=== PATIENT | female | born 1980 | race Caucasian/White ===

== ENCOUNTER 2016-08-04 14:50 | Emergency (ER) | payer SELFPAY ==
[2016-08-04] MEDS ORDERED: SODIUM CHLORIDE 0.9% 1,000 ML IV ONE (15:55)
--- NOTE | 2016-08-04 16:16 | ED ---
Nausea/Vomiting/Diarrhea HPI - General Chief complaint: Nausea/Vomiting/Diarrhea Stated complaint: NVD Time Seen by Provider: 08/04/16 15:54 Source: patient, RN notes reviewed Mode of arrival: ambulatory Limitations: no limitations - History of Present Illness Initial comments: Patient is a 36-year-old female presents emergency room for evaluation nausea, vomiting, diarrhea. Patient states she started vomiting on Thursday. Patient states vomiting all weekend. Patient states she can't keep anything down. Patient states she's also developed diarrhea. Patient denies recent travel outside the country or trying new foods. Patient also states that having cough and congestion for the past few days. Patient states every time she coughs she has right posterior rib pain. Patient denies any recent trauma to her back or ribs. Patient states that she does smoke a half pack per day. Patient states she had a fever last night. Patient denies taking anything for her symptoms. Patient states she feels weak and has had itching all over body pain. Patient denies receiving her influenza vaccine this year. Patient also states she's been having left upper quadrant pain that began today. Patient states the pain feels sharp. Patient states she has history cholecystectomy. Patient denies any blood in stools. Patient has a pain or burning during urination, trouble urinating or blood in urine. - Related Data Home Medications Medication Instructions Recorded Confirmed Albuterol Inhaler [Ventolin Hfa 1 - 2 puff INHALATION RT-Q6H PRN 08/04/16 Inhaler] Previous Rx's Medication Instructions Recorded Nitrofurantoin Monohyd/M-Cryst 100 mg PO Q12HR 5 Days 08/04/16 [Macrobid] Ondansetron Odt [Zofran Odt] 4 mg PO Q8HR PRN #12 tab 08/04/16 Allergies Allergy/AdvReac Type Severity Reaction Status Date / Time ibuprofen [From Motrin] Allergy Itching Verified 08/04/16 16:03 Review of Systems ROS Statement: Those systems with pertinent positive or pertinent negative responses have been documented in the HPI. ROS Other: All systems not noted in ROS Statement are negative. Past Medical History Past Medical History: Osteoarthritis (OA) Additional Past Medical History / Comment(s): CURRENT TORN RT ACL History of Any Multi-Drug Resistant Organisms: None Reported Past Surgical History: Section, Cholecystectomy, Tubal Ligation Past Anesthesia/Blood Transfusion Reactions: No Reported Reaction Past Psychological History: Depression Smoking Status: Current every day smoker Past Alcohol Use History: None Reported Additional Past Alcohol Use History / Comment(s): PT STATES QUIT SMOKING 2 WEEK AGO 01/18/15 Past Drug Use History: None Reported - Past Family History Mother Family Medical History: No Reported History General Exam - General Exam Comments Initial Comments: Sitting in exam room in no acute distress. Limitations: no limitations General appearance: alert, in no apparent distress Head exam: Present: atraumatic, normocephalic, normal inspection Eye exam: Present: normal appearance ENT exam: Present: normal exam Neck exam: Present: normal inspection Respiratory exam: Present: normal lung sounds bilaterally. Absent: respiratory distress Cardiovascular Exam: Present: regular rate, normal rhythm, normal heart sounds GI/Abdominal exam: Present: soft, tenderness (Left upper quadrant), normal bowel sounds. Absent: distended, guarding, rebound, rigid Extremities exam: Present: normal inspection Back exam: Present: normal inspection Neurological exam: Present: alert, oriented X3, CN II-XII intact, normal gait Psychiatric exam: Present: normal affect, normal mood Skin exam: Present: warm, dry, intact, normal color. Absent: rash Course Vital Signs 08/04/16 08/04/16 08/04/16 15:02 16:31 18:07 Temperature 99.0 F 97.8 F 98.1 F Pulse Rate 70 60 54 L Respiratory 16 18 18 Rate Blood Pressure 135/71 109/55 111/63 O2 Sat by Pulse 100 99 100 Oximetry Medical Decision Making - Medical Decision Making Patient is a 36-year-old female presents to emergency room for evaluation of nausea, vomiting and diarrhea. Labs show no significant findings. Influenza negative. Patient states she is feeling much better after fluids and Zofran given. Patient states she would like to be discharged home. Urinalysis suspicious for possible urinary tract infection. Will culture urine and prophylactically treat patient for urinary tract infection. Patient states she understands and that was discussed with her. Return parameters discussed. Case discussed with Dr. Calvillo. - Lab Data Result diagrams: 08/04/16 16:28 08/04/16 16:28 Lab Results 08/04/16 08/04/16 08/04/16 Range/Units 16:28 16:28 16:28 WBC 9.3 (3.8-10.6) k/uL RBC 4.71 (3.80-5.40) m/uL Hgb 14.0 (11.4-16.0) gm/dL Hct 41.1 (34.0-46.0) % MCV 87.3 (80.0-100.0) fL MCH 29.7 (25.0-35.0) pg MCHC 34.0 (31.0-37.0) g/dL RDW 13.6 (11.5-15.5) % Plt Count 238 (150-450) k/uL Neutrophils % 47 % Lymphocytes % 40 % Monocytes % 4 % Eosinophils % 5 % Basophils % 2 % Neutrophils # 4.4 (1.3-7.7) k/uL Lymphocytes # 3.7 (1.0-4.8) k/uL Monocytes # 0.4 (0-1.0) k/uL Eosinophils # 0.5 (0-0.7) k/uL Basophils # 0.1 (0-0.2) k/uL Sodium 139 (137-145) mmol/L Potassium 4.1 (3.5-5.1) mmol/L Chloride 106 (98-107) mmol/L Carbon Dioxide 25 (22-30) mmol/L Anion Gap 8 mmol/L BUN 9 (7-17) mg/dL Creatinine 0.83 (0.52-1.04) mg/dL Est GFR (MDRD) Af Amer >60 (>60 ml/min/1.73 sqM) Est GFR (MDRD) Non-Af >60 (>60 ml/min/1.73 sqM) Glucose 87 (74-99) mg/dL Calcium 9.1 (8.4-10.2) mg/dL Magnesium 1.7 (1.6-2.3) mg/dL Total Bilirubin 0.5 (0.2-1.3) mg/dL AST 23 (14-36) U/L ALT 29 (9-52) U/L Alkaline Phosphatase 76 (38-126) U/L Total Protein 6.4 (6.3-8.2) g/dL Albumin 3.5 (3.5-5.0) g/dL Amylase 31 (30-110) U/L Lipase 55 (23-300) U/L Urine Color Urine Appearance (Clear) Urine pH (5.0-8.0) Ur Specific Offerman (1.001-1.035) Urine Protein (Negative) Urine Glucose (UA) (Negative) Urine Ketones (Negative) Urine Blood (Negative) Urine Nitrite (Negative) Urine Bilirubin (Negative) Urine Urobilinogen (<2.0) mg/dL Ur Leukocyte Esterase (Negative) Urine RBC (0-5) /hpf Urine WBC (0-5) /hpf Ur Squamous Epith Cells (0-4) /hpf Urine Bacteria (None) /hpf Urine Mucus (None) /hpf Influenza Type A RNA Not Detected (Not Detectd) Influenza Type B (PCR) Not Detected (Not Detectd) 08/04/16 Range/Units 17:35 WBC (3.8-10.6) k/uL RBC (3.80-5.40) m/uL Hgb (11.4-16.0) gm/dL Hct (34.0-46.0) % MCV (80.0-100.0) fL MCH (25.0-35.0) pg MCHC (31.0-37.0) g/dL RDW (11.5-15.5) % Plt Count (150-450) k/uL Neutrophils % % Lymphocytes % % Monocytes % % Eosinophils % % Basophils % % Neutrophils # (1.3-7.7) k/uL Lymphocytes # (1.0-4.8) k/uL Monocytes # (0-1.0) k/uL Eosinophils # (0-0.7) k/uL Basophils # (0-0.2) k/uL Sodium (137-145) mmol/L Potassium (3.5-5.1) mmol/L Chloride (98-107) mmol/L Carbon Dioxide (22-30) mmol/L Anion Gap mmol/L BUN (7-17) mg/dL Creatinine (0.52-1.04) mg/dL Est GFR (MDRD) Af Amer (>60 ml/min/1.73 sqM) Est GFR (MDRD) Non-Af (>60 ml/min/1.73 sqM) Glucose (74-99) mg/dL Calcium (8.4-10.2) mg/dL Magnesium (1.6-2.3) mg/dL Total Bilirubin (0.2-1.3) mg/dL AST (14-36) U/L ALT (9-52) U/L Alkaline Phosphatase (38-126) U/L Total Protein (6.3-8.2) g/dL Albumin (3.5-5.0) g/dL Amylase (30-110) U/L Lipase (23-300) U/L Urine Color Yellow Urine Appearance Cloudy H (Clear) Urine pH 5.5 (5.0-8.0) Ur Specific Offerman 1.021 (1.001-1.035) Urine Protein Trace H (Negative) Urine Glucose (UA) Negative (Negative) Urine Ketones Negative (Negative) Urine Blood Negative (Negative) Urine Nitrite Negative (Negative) Urine Bilirubin Negative (Negative) Urine Urobilinogen 2.0 (<2.0) mg/dL Ur Leukocyte Esterase Large H (Negative) Urine RBC 17 H (0-5) /hpf Urine WBC 8 H (0-5) /hpf Ur Squamous Epith Cells 10 H (0-4) /hpf Urine Bacteria Rare H (None) /hpf Urine Mucus Moderate H (None) /hpf Influenza Type A RNA (Not Detectd) Influenza Type B (PCR) (Not Detectd) - Radiology Data Radiology results: report reviewed, image reviewed Disposition Clinical Impression: Nausea vomiting and diarrhea, Urinary tract infection Disposition: HOME SELF-CARE Condition: Good Instructions: Acute Nausea and Vomiting (ED), Urinary Tract Infection in Women (ED) Additional Instructions: Take Zofran as needed for nausea. Take antibiotics as directed. Drink plenty of fluids. Please follow up with primary care provider in 24-48 hours for reevaluation. If any new symptom arises or symptoms worsen, return to ER as soon as possible. Prescriptions: Ondansetron Odt [Zofran Odt] 4 mg PO Q8HR PRN #12 tab PRN Reason: Nausea Nitrofurantoin Monohyd/M-Cryst [Macrobid] 100 mg PO Q12HR 5 Days Referrals: Son Verdugo MD [Primary Care Provider] - 1-2 days Time of Disposition: 18:23
[2016-08-04 16:35] VITALS: RESP 18
[2016-08-04 16:39] LABS: Basophils # (A) 0.1 k/uL (0-0.2); Basophils % (A) 2 %; CH 29.2; CHCM 33.6; Eosinophils # (A) 0.5 k/uL (0-0.7); Eosinophils % (A) 5 %; HCT 41.1 % (34.0-46.0); HDW 2.55; Luc # (Auto) 0.19; Luc % (Auto) 2; Lymphocytes # (A) 3.7 k/uL (1.0-4.8); Lymphocytes % (A) 40 %; MCH 29.7 pg (25.0-35.0); MCV 87.3 fL (80.0-100.0); Monocytes # (A) 0.4 k/uL (0-1.0); Monocytes % (A) 4 %; Neutrophils # (A) 4.4 k/uL (1.3-7.7); Neutrophils % (A) 47 %; RBC 4.71 m/uL (3.80-5.40); RDW 13.6 % (11.5-15.5); WBC 9.3 k/uL (3.8-10.6); WBC (Perox) 10.02
[2016-08-04 16:48] LABS: ALT 29 U/L (9-52); AST 23 U/L (14-36); Alkaline Phosphatase 76 U/L (38-126); Amylase 31 U/L (30-110); Anion Gap 8 mmol/L; Blood Urea Nitrogen 9 mg/dL (7-17); Calcium 9.1 mg/dL (8.4-10.2); Carbon Dioxide 25 mmol/L (22-30); Chloride 106 mmol/L (98-107); Glucose 87 mg/dL (74-99); Magnesium 1.7 mg/dL (1.6-2.3); Non-African American GFR(MDRD) >60 (>60 ml/min/1.73 sqM); Potassium 4.1 mmol/L (3.5-5.1); Sodium 139 mmol/L (137-145); Total Bilirubin 0.5 mg/dL (0.2-1.3); Total Protein 6.4 g/dL (6.3-8.2)
--- NOTE | 2016-08-04 17:07 | XR ---
EXAMINATION TYPE: XR abdomen acute w cxr DATE OF EXAM: 08/04/2016 5:01 PM COMPARISON: 01/06/2014 HISTORY: Cough. Abdominal pain. TECHNIQUE: Supine, upright, and left side down lateral decubitus views of the abdomen are obtained. FINDINGS: There is no sign of intestinal obstruction or pneumoperitoneum. Fecal pattern is normal. There are cl ips from tubal ligation. There are no pathologic calcifications over the kidneys. Heart and mediastin um are normal. Lungs are clear of infiltrate. There is no sign of pleural effusion. IMPRESSION: Nonacute abdomen. Normal chest. No adverse change compared to old exam.
[2016-08-04 17:53] LABS: Appearance,Urine Cloudy (Clear); Bacteria,Urine Rare /hpf; Bilirubin,Urine Negative (Negative); Glucose,Urine (UA) Negative (Negative); Ketones,Urine Negative (Negative); Leukocyte Esterase,Urine Large (Negative); Mucus,Urine Moderate /hpf; Nitrite,Urine Negative (Negative); PH, Urine 5.5 (5.0-8.0); Particle Count 15981; Protein,Urine Trace (Negative); RBC,Urine 17 /hpf (0-5); Specific Gravity,Urine 1.021 (1.001-1.035); Squamous Epithelial Cell,Urine 10 /hpf (0-4); UA Billing (MACRO vs. MICRO) MICRO; WBC,Urine 8 /hpf (0-5)
[2016-08-04] MEDS ORDERED: ACETAMINOPHEN TAB 325 MG TAB PO STA (18:03)
[2016-08-04 18:08] VITALS: BP 111/63; PULSE 54; TEMP 98.1
== END 2016-08-04 18:47 | disposition home or self-care (01) ==
LOC: EC 14:50
DX: N39.0 Urinary tract infection, site not specified (principal); R11.2 Nausea with vomiting, unspecified; R10.12 Left upper quadrant pain; R07.81 Pleurodynia; R05 Cough; R09.89 Other specified symptoms and signs involving the circulatory and respiratory systems; Z87.891 Personal history of nicotine dependence; Z88.6 Allergy status to analgesic agent; Z90.49 Acquired absence of other specified parts of digestive tract
CPT/HCPCS: 36415; 74022; 80053; 81001; 82150; 83690; 83735; 85025; 87502; 96360; 99284

== ENCOUNTER 2016-10-29 14:16 | Emergency (ER) | payer BC ==
[2016-10-29] MEDS ORDERED: HYDROcodone/APAP 5-325MG 1 EACH TAB PO STA (16:26)
--- NOTE | 2016-10-29 16:50 | ED ---
General Adult HPI - General Chief complaint: Chest Pain Stated complaint: Rib Pain Time Seen by Provider: 10/29/16 16:05 Source: patient Mode of arrival: ambulatory Limitations: no limitations - History of Present Illness Initial comments: 36-year-old female presenting for right rib and chest pain. Patient states it began yesterday and has persisted today. States pain is in the right lower ribs and radiates to the right back. She denies any abdominal pain associated. She denies any nausea or vomiting associated. She states hurts to take a deep breath in. Denies any significant cardiac history. She denies any prior DVT or PE. She denies any lower extremity swelling. - Related Data Home Medications Medication Instructions Recorded Confirmed Acetaminophen [Tylenol] 650 mg PO BID PRN 10/29/16 10/29/16 Previous Rx's Medication Instructions Recorded Diazepam [Valium] 5 mg PO BID PRN #8 tab 10/29/16 HYDROcodone/APAP 5-325MG [[place] 1 tab PO Q6HR PRN #12 tab 10/29/16 5-325] Allergies Allergy/AdvReac Type Severity Reaction Status Date / Time ibuprofen [From Motrin] Allergy Itching Verified 10/29/16 16:43 Review of Systems ROS Statement: Those systems with pertinent positive or pertinent negative responses have been documented in the HPI. ROS Other: All systems not noted in ROS Statement are negative. Past Medical History Past Medical History: Osteoarthritis (OA) Additional Past Medical History / Comment(s): CURRENT TORN RT ACL History of Any Multi-Drug Resistant Organisms: None Reported Past Surgical History: Section, Cholecystectomy, Orthopedic Surgery, Tubal Ligation Additional Past Surgical History / Comment(s): right knee Past Anesthesia/Blood Transfusion Reactions: No Reported Reaction Past Psychological History: Depression Smoking Status: Current every day smoker Past Alcohol Use History: None Reported Additional Past Alcohol Use History / Comment(s): PT STATES QUIT SMOKING 2 WEEK AGO 01/18/15 Past Drug Use History: None Reported - Past Family History Mother Family Medical History: No Reported History General Exam - General Exam Comments Initial Comments: General: Awake and Alert. No acute distress. Does not appear acutely ill. Obese. Eyes: SOCRATES, EOM intact. No nystagmus. No scleral icterus. HENT: Atraumatic, normocephalic. Mucous membranes moist. Trachea midline. Neck: The neck is supple, there is no tenderness or JVD. Cardiovascular: Regular rate and rhythm. No murmur, rub, or gallop is appreciated. Distal pulses intact. Respiratory: Lungs are clear to auscultation bilaterally. No wheezes, rales, rhonchi. No respiratory distress. Gastrointestinal: Soft, Nontender. No rebound or guarding. Non-distended. No masses or organomegaly noted. No CVA tenderness. Musculoskeletal: Right lateral lower rib tenderness. No crepitance. No gross deformity. No strength deficits. Neurological: A&Ox3. CN II-XII grossly intact, There are no obvious motor or sensory deficits. Coordination appears grossly intact. Speech is normal. Skin: Skin is warm and dry and no rashes or lesions are noted. Psychiatric: Cooperative, appropriate mood & affect, normal judgment. Limitations: no limitations Course Vital Signs 10/29/16 10/29/16 14:40 18:24 Temperature 97.8 F 97.3 F L Pulse Rate 85 55 L Respiratory 18 16 Rate Blood Pressure 119/77 108/55 O2 Sat by Pulse 96 98 Oximetry EKG Findings - EKG Comments: EKG Findings:: EKG 17:36. Sinus rhythm. Rate 51. Normal axis. No STEMI. Normal EKG. Medical Decision Making - Medical Decision Making 36-year-old female presenting for right rib pain. Patient is reproducible tenderness on exam. EKG was performed without evidence of acute ischemia. X- ray imaging performed without evidence of acute process. Lower suspicion of acute PE at this time. Patient without hypoxia, no tachycardia, no significant risk factors for PE. Patient was given pain medication with improvement of her pain. Patient was updated on results and imaging. Rx for pain medication and muscle relaxer provided. Discussed close follow-up with PCP. Discussed concerning signs symptoms, including concerning symptoms relating to possible PE for immediate return and further workup. Patient is agreeable with plan and discharge home. - Lab Data Result diagrams: 10/29/16 16:55 10/29/16 16:55 Lab Results 10/29/16 10/29/16 Range/Units 16:55 16:55 WBC 11.5 H (3.8-10.6) k/uL RBC 5.27 (3.80-5.40) m/uL Hgb 15.2 (11.4-16.0) gm/dL Hct 47.0 H (34.0-46.0) % MCV 89.2 (80.0-100.0) fL MCH 28.8 (25.0-35.0) pg MCHC 32.3 (31.0-37.0) g/dL RDW 13.5 (11.5-15.5) % Plt Count 266 (150-450) k/uL Neutrophils % 51 % Lymphocytes % 40 % Monocytes % 4 % Eosinophils % 4 % Basophils % 1 % Neutrophils # 5.8 (1.3-7.7) k/uL Lymphocytes # 4.6 (1.0-4.8) k/uL Monocytes # 0.4 (0-1.0) k/uL Eosinophils # 0.4 (0-0.7) k/uL Basophils # 0.1 (0-0.2) k/uL Sodium 139 (137-145) mmol/L Potassium 3.7 (3.5-5.1) mmol/L Chloride 105 (98-107) mmol/L Carbon Dioxide 27 (22-30) mmol/L Anion Gap 7 mmol/L BUN 10 (7-17) mg/dL Creatinine 0.74 (0.52-1.04) mg/dL Est GFR (MDRD) Af Amer >60 (>60 ml/min/1.73 sqM) Est GFR (MDRD) Non-Af >60 (>60 ml/min/1.73 sqM) Glucose 91 (74-99) mg/dL Calcium 9.0 (8.4-10.2) mg/dL Magnesium 1.8 (1.6-2.3) mg/dL - EKG Data -: EKG Interpreted by Nm EKG shows normal: sinus rhythm Rate: normal - Radiology Data Radiology results: report reviewed, image reviewed Disposition Clinical Impression: Rib pain on right side Disposition: HOME SELF-CARE Condition: Stable Instructions: Chest Pain (ED), Costochondritis (ED) Prescriptions: Diazepam [Valium] 5 mg PO BID PRN #8 tab PRN Reason: back spasm HYDROcodone/APAP 5-325MG [Ow[place] 5-325] 1 tab PO Q6HR PRN #12 tab PRN Reason: Pain Referrals: Son Verdugo MD [Primary Care Provider] - 1-2 days Time of Disposition: 17:53
[2016-10-29 17:05] LABS: Basophils # (A) 0.1 k/uL (0-0.2); Basophils % (A) 1 %; CH 29.3; Eosinophils # (A) 0.4 k/uL (0-0.7); Eosinophils % (A) 4 %; HDW 2.42; HGB 15.2 gm/dL (11.4-16.0); Luc # (Auto) 0.15; Luc % (Auto) 1; Lymphocytes # (A) 4.6 k/uL (1.0-4.8); Lymphocytes % (A) 40 %; MCH 28.8 pg (25.0-35.0); MCHC 32.3 g/dL (31.0-37.0); MCV 89.2 fL (80.0-100.0); Mean Platelet Volume 7.9; Monocytes # (A) 0.4 k/uL (0-1.0); Monocytes % (A) 4 %; Neutrophils # (A) 5.8 k/uL (1.3-7.7); Neutrophils % (A) 51 %; RBC 5.27 m/uL (3.80-5.40); RDW 13.5 % (11.5-15.5); WBC 11.5 k/uL (3.8-10.6); WBC (Perox) 11.14
[2016-10-29 17:15] LABS: Anion Gap 7 mmol/L; Blood Urea Nitrogen 10 mg/dL (7-17); Carbon Dioxide 27 mmol/L (22-30); Chloride 105 mmol/L (98-107); Glucose 91 mg/dL (74-99); Magnesium 1.8 mg/dL (1.6-2.3); Non-African American GFR(MDRD) >60 (>60 ml/min/1.73 sqM); Potassium 3.7 mmol/L (3.5-5.1); Sodium 139 mmol/L (137-145)
--- NOTE | 2016-10-29 17:21 | XR ---
EXAMINATION TYPE: XR chest 2V DATE OF EXAM: 10/29/2016 COMPARISON: 04/27/2016 HISTORY: Cough TECHNIQUE: Frontal and lateral views of the chest are obtained. FINDINGS: Heart and mediastinum are normal. Lungs are clear. Diaphragm is normal. Bony thorax appear s normal. IMPRESSION: Normal chest. No change.
[2016-10-29 18:25] VITALS: BP 108/55; PULSE 55; RESP 16; TEMP 97.3
== END 2016-10-29 18:24 | disposition home or self-care (01) ==
LOC: EC 14:16
DX: R07.81 Pleurodynia (principal); Z87.891 Personal history of nicotine dependence; Z88.6 Allergy status to analgesic agent
CPT/HCPCS: 36415; 71020; 80048; 83735; 85025; 93005; 99285

== ENCOUNTER 2016-12-05 08:59 | Emergency (ER) | payer BC ==
--- NOTE | 2016-12-05 09:16 | ED ---
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 Patient reports that she has had a lump on her vaginal area as well as frequent urination. He reports that whenever she had a bowel more treatment and has been painful. She also reports that she's had some abnormal vaginal discharge for the past 3 days. Patient states that she has had no fever or chills. She also reports that occasionally she'll get a sharp pain over her right upper quadrant. She states that she's had a history of a cholecystectomy and tubal ligation. She denies any other abdominal pain, chest pain or shortness of breath. Patient denies any recent fever, chills, shortness of breath, chest pain, back pain, abdominal pain, nausea vomiting, numbness or tingling, dysuria or hematuria, constipation or diarrhea, headaches or visual changes, or any other current symptoms - Related Data Home Medications Medication Instructions Recorded Confirmed Acetaminophen [Tylenol] 650 mg PO BID PRN 10/29/16 12/05/16 Previous Rx's Medication Instructions Recorded Doxycycline [Vibramycin] 100 mg PO Q12HR 14 Days 12/05/16 Allergies Allergy/AdvReac Type Severity Reaction Status Date / Time ibuprofen [From Motrin] Allergy Itching Verified 12/05/16 09:39 Review of Systems ROS Statement: Those systems with pertinent positive or pertinent negative responses have been documented in the HPI. ROS Other: All systems not noted in ROS Statement are negative. Past Medical History Past Medical History: Osteoarthritis (OA) Additional Past Medical History / Comment(s): CURRENT TORN RT ACL History of Any Multi-Drug Resistant Organisms: None Reported Past Surgical History: Section, Cholecystectomy, Orthopedic Surgery, Tubal Ligation Additional Past Surgical History / Comment(s): right knee Past Anesthesia/Blood Transfusion Reactions: No Reported Reaction Past Psychological History: Depression Smoking Status: Current every day smoker Past Alcohol Use History: None Reported Past Drug Use History: None Reported - Past Family History Mother Family Medical History: No Reported History General Exam - General Exam Comments Initial Comments: 36-year-old female. No acute distress. Limitations: no limitations General appearance: alert, in no apparent distress Head exam: Present: atraumatic, normocephalic, normal inspection Eye exam: Present: normal appearance, PERRL, EOMI. Absent: scleral icterus, conjunctival injection, periorbital swelling ENT exam: Present: normal exam, mucous membranes moist Neck exam: Present: normal inspection. Absent: tenderness, meningismus, lymphadenopathy Respiratory exam: Present: normal lung sounds bilaterally. Absent: respiratory distress, wheezes, rales, rhonchi, stridor Cardiovascular Exam: Present: regular rate, normal rhythm, normal heart sounds. Absent: systolic murmur, diastolic murmur, rubs, gallop, clicks GI/Abdominal exam: Present: soft, normal bowel sounds. Absent: distended, tenderness, guarding, rebound, rigid Rectal exam: Present: normal inspection, normal rectal tone (Patient has pain with rectal exam. There does seem to be concerned for possible perirectal abscess. There is seemed to be an area of fluctuance between the areas of the rectum and vagina.) External exam: Present: normal external exam. Absent: erythema, swelling, lesions, lacerations, ecchymosis Speculum exam: Present: vaginal discharge (Patient is purulent white/yellow vaginal discharge. Patient denies any concern for sexual transmitted infection. There is an area of tenderness and fluctuance over the inner vaginal wall and canal.). Absent: normal speculum exam Extremities exam: Present: normal inspection, full ROM, normal capillary refill. Absent: tenderness, pedal edema, joint swelling, calf tenderness Back exam: Present: normal inspection Neurological exam: Present: alert, oriented X3, CN II-XII intact Psychiatric exam: Present: normal affect, normal mood Skin exam: Present: warm, dry, intact, normal color. 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 Patient reports that she has had a lump on her vaginal area as well as frequent urination. He reports that whenever she had a bowel more treatment and has been painful. She also reports that she's had some abnormal vaginal discharge for the past 3 days. Patient states that she has had no fever or chills. She also reports that occasionally she'll get a sharp pain over her right upper quadrant. She states that she's had a history of a cholecystectomy and tubal ligation. She denies any other abdominal pain, chest pain or shortness of breath. Patient's labwork was reviewed. Evidence of significant urinary tract infection. Also Trichomonas test was positive. On vaginal exam she did have an area of wincing D fluctuance and tenderness on vaginal exam. She also had some discomfort with digital rectal exam. At that time there is concern for possibility of perirectal or vaginal wall abscess. Patient received a CAT scan of the pelvis with contrast. Negative for any sign of any abscess or abnormalities. Patient was treated with Flagyl, Rocephin and azithromycin for concern for PID. Patient will be discharged with antibiotics. Patient agrees to treatment plan and will comply. Return parameters were discussed. - Lab Data Result diagrams: 12/05/16 10:00 12/05/16 10:00 Lab Results 12/05/16 12/05/16 12/05/16 Range/Units 10:00 10:00 10:00 WBC 12.1 H (3.8-10.6) k/uL RBC 4.81 (3.80-5.40) m/uL Hgb 14.0 (11.4-16.0) gm/dL Hct 41.9 (34.0-46.0) % MCV 87.2 (80.0-100.0) fL MCH 29.1 (25.0-35.0) pg MCHC 33.4 (31.0-37.0) g/dL RDW 14.5 (11.5-15.5) % Plt Count 258 (150-450) k/uL Neutrophils % 53 % Lymphocytes % 37 % Monocytes % 4 % Eosinophils % 4 % Basophils % 1 % Neutrophils # 6.4 (1.3-7.7) k/uL Lymphocytes # 4.5 (1.0-4.8) k/uL Monocytes # 0.5 (0-1.0) k/uL Eosinophils # 0.4 (0-0.7) k/uL Basophils # 0.1 (0-0.2) k/uL PT (9.0-12.0) sec INR (<1.2) APTT (22.0-30.0) sec Sodium (137-145) mmol/L Potassium (3.5-5.1) mmol/L Chloride (98-107) mmol/L Carbon Dioxide (22-30) mmol/L Anion Gap mmol/L BUN (7-17) mg/dL Creatinine (0.52-1.04) mg/dL Est GFR (MDRD) Af Amer (>60 ml/min/1.73 sqM) Est GFR (MDRD) Non-Af (>60 ml/min/1.73 sqM) Glucose (74-99) mg/dL Calcium (8.4-10.2) mg/dL Total Bilirubin (0.2-1.3) mg/dL AST (14-36) U/L ALT (9-52) U/L Alkaline Phosphatase (38-126) U/L Total Protein (6.3-8.2) g/dL Albumin (3.5-5.0) g/dL Urine Color Yellow Urine Appearance Cloudy H (Clear) Urine pH 6.0 (5.0-8.0) Ur Specific [place] 1.015 (1.001-1.035) Urine Protein 1+ H (Negative) Urine Glucose (UA) Negative (Negative) Urine Ketones Negative (Negative) Urine Blood Trace H (Negative) Urine Nitrite Negative (Negative) Urine Bilirubin Negative (Negative) Urine Urobilinogen 2.0 (<2.0) mg/dL Ur Leukocyte Esterase Large H (Negative) Urine RBC 36 H (0-5) /hpf Urine WBC 153 H (0-5) /hpf Urine WBC Clumps Rare H (None) /hpf Ur Squamous Epith Cells 8 H (0-4) /hpf Urine Bacteria Rare H (None) /hpf Urine Mucus Occasional H (None) /hpf Trichomonas Ag (Rapid) Positive H (Negative) 12/05/16 12/05/16 Range/Units 10:00 10:00 WBC (3.8-10.6) k/uL RBC (3.80-5.40) m/uL Hgb (11.4-16.0) gm/dL Hct (34.0-46.0) % MCV (80.0-100.0) fL MCH (25.0-35.0) pg MCHC (31.0-37.0) g/dL RDW (11.5-15.5) % Plt Count (150-450) k/uL Neutrophils % % Lymphocytes % % Monocytes % % Eosinophils % % Basophils % % Neutrophils # (1.3-7.7) k/uL Lymphocytes # (1.0-4.8) k/uL Monocytes # (0-1.0) k/uL Eosinophils # (0-0.7) k/uL Basophils # (0-0.2) k/uL PT 10.1 (9.0-12.0) sec INR 1.0 (<1.2) APTT 24.8 (22.0-30.0) sec Sodium 138 (137-145) mmol/L Potassium 3.9 (3.5-5.1) mmol/L Chloride 105 (98-107) mmol/L Carbon Dioxide 25 (22-30) mmol/L Anion Gap 8 mmol/L BUN 9 (7-17) mg/dL Creatinine 0.87 (0.52-1.04) mg/dL Est GFR (MDRD) Af Amer >60 (>60 ml/min/1.73 sqM) Est GFR (MDRD) Non-Af >60 (>60 ml/min/1.73 sqM) Glucose 82 (74-99) mg/dL Calcium 9.0 (8.4-10.2) mg/dL Total Bilirubin 0.3 (0.2-1.3) mg/dL AST 15 (14-36) U/L ALT 25 (9-52) U/L Alkaline Phosphatase 80 (38-126) U/L Total Protein 6.0 L (6.3-8.2) g/dL Albumin 3.6 (3.5-5.0) g/dL Urine Color Urine Appearance (Clear) Urine pH (5.0-8.0) Ur Specific [place] (1.001-1.035) Urine Protein (Negative) Urine Glucose (UA) (Negative) Urine Ketones (Negative) Urine Blood (Negative) Urine Nitrite (Negative) Urine Bilirubin (Negative) Urine Urobilinogen (<2.0) mg/dL Ur Leukocyte Esterase (Negative) Urine RBC (0-5) /hpf Urine WBC (0-5) /hpf Urine WBC Clumps (None) /hpf Ur Squamous Epith Cells (0-4) /hpf Urine Bacteria (None) /hpf Urine Mucus (None) /hpf Trichomonas Ag (Rapid) (Negative) - Radiology Data Radiology results: report reviewed CT abdomen and pelvis is negative for any acute process. Disposition Clinical Impression: PID (acute pelvic inflammatory disease), UTI (urinary tract infection) Disposition: HOME SELF-CARE Condition: Good Instructions: Urinary Tract Infection in Women (ED), Pelvic Inflammatory Disease (ED) Additional Instructions: Patient advised to have pelvic rest and no intercourse for the next 2 weeks. Take medication as prescribed. Return to the emergency department if any alarming signs or symptoms occur. Prescriptions: Doxycycline [Vibramycin] 100 mg PO Q12HR 14 Days Referrals: Son Verdugo MD [Primary Care Provider] - 1-2 days Time of Disposition: 12:06
[2016-12-05] MEDS ORDERED: RX INFO: IV CONTRAST WAS GIVEN 1 EACH MISC MISCELLANE PRN (09:48)
[2016-12-05] MEDS ORDERED: SODIUM CHLORIDE 0.9% 1,000 ML IV ONE (10:19)
[2016-12-05 10:21] LABS: Basophils # (A) 0.1 k/uL (0-0.2); Basophils % (A) 1 %; CH 29.4; CHCM 33.9; Eosinophils # (A) 0.4 k/uL (0-0.7); Eosinophils % (A) 4 %; HCT 41.9 % (34.0-46.0); HDW 2.42; Luc # (Auto) 0.19; Luc % (Auto) 2; Lymphocytes # (A) 4.5 k/uL (1.0-4.8); Lymphocytes % (A) 37 %; MCH 29.1 pg (25.0-35.0); MCHC 33.4 g/dL (31.0-37.0); MCV 87.2 fL (80.0-100.0); Mean Platelet Volume 8.5; Monocytes # (A) 0.5 k/uL (0-1.0); Monocytes % (A) 4 %; Neutrophils # (A) 6.4 k/uL (1.3-7.7); Neutrophils % (A) 53 %; RBC 4.81 m/uL (3.80-5.40); RDW 14.5 % (11.5-15.5); WBC 12.1 k/uL (3.8-10.6); WBC (Perox) 11.85
[2016-12-05 10:27] LABS: Appearance,Urine Cloudy (Clear); Bacteria,Urine Rare /hpf; Bilirubin,Urine Negative (Negative); Glucose,Urine (UA) Negative (Negative); Ketones,Urine Negative (Negative); Leukocyte Esterase,Urine Large (Negative); Mucus,Urine Occasional /hpf; Nitrite,Urine Negative (Negative); Particle Count 11343; Protein,Urine 1+ (Negative); RBC,Urine 36 /hpf (0-5); Specific Gravity,Urine 1.015 (1.001-1.035); Squamous Epithelial Cell,Urine 8 /hpf (0-4); UA Billing (MACRO vs. MICRO) MICRO; WBC,Urine 153 /hpf (0-5)
[2016-12-05 10:29] LABS: ALT 25 U/L (9-52); AST 15 U/L (14-36); Alkaline Phosphatase 80 U/L (38-126); Anion Gap 8 mmol/L; Blood Urea Nitrogen 9 mg/dL (7-17); Carbon Dioxide 25 mmol/L (22-30); Chloride 105 mmol/L (98-107); Glucose 82 mg/dL (74-99); Non-African American GFR(MDRD) >60 (>60 ml/min/1.73 sqM); Partial Thromboplastin Time 24.8 sec (22.0-30.0); Potassium 3.9 mmol/L (3.5-5.1); Prothrombin Time 10.1 sec (9.0-12.0); Sodium 138 mmol/L (137-145); Total Bilirubin 0.3 mg/dL (0.2-1.3)
[2016-12-05] MEDS ORDERED: SODIUM CHLORIDE 0.9% 1,000 ML IV SCH (10:30)
[2016-12-05] MEDS ORDERED: MORPHINE SULFATE 2 MG/ML SYRINGE IVP ONE (10:37)
[2016-12-05] MEDS ORDERED: metroNIDAZOLE 500 MG TAB PO STA (11:27)
--- NOTE | 2016-12-05 11:31 | CT ---
EXAMINATION TYPE: CT abdomen pelvis w con DATE OF EXAM: 12/05/2016 COMPARISON: NONE HISTORY: Rectal Abscess CT DLP: 1553.90 mGycm CONTRAST: CT scan of the abdomen and pelvis is performed without Oral Contrast and with IV Contrast, patient in jected with 100 ml mL of Omnipaque 300. FINDINGS: LUNG BASES-: No visible nodule. No infiltrate. LIVER/GB: Cholecystectomy clips. No space occupying hepatic lesion. Biliary tree is of normal zee jose. PANCREAS: No inflammation. No distinct mass. SPLEEN: No splenic enlargement. No lesion seen. ADRENALS: No nodule. No thickening. KIDNEYS/BLADDER: No hydronephrosis. No nephrolithiasis. No disctinct renal mass. Urinary bladder g rossly unremarkable. BOWEL: Normal appendix. Normal bowel caliber. No inflammation. No evidence for rectal or perirectal abscess at this time. GENITAL ORGANS: Tubal ligation changes. Trace free fluid within the pelvis. LYMPH NODES: No greater than 1cm abdominal or pelvic lymph nodes are appreciated. AORTA: No significant abnormality. OSSEOUS STRUCTURES: No significant abnormality is seen. OTHER: No significant additional abnormality is seen. IMPRESSION: 1. No acute process appreciated.
[2016-12-05] MEDS ORDERED: AZITHROMYCIN 500 MG TAB PO STA (11:36)
[2016-12-05] MEDS ORDERED: cefTRIAXone 250 MG VIAL IM STA (11:36)
[2016-12-05 12:12] VITALS: BP 117/64; PULSE 60; RESP 16; TEMP 97.7
== END 2016-12-05 12:33 | disposition home or self-care (01) ==
LOC: EC 08:59
DX: N73.0 Acute parametritis and pelvic cellulitis (principal); N39.0 Urinary tract infection, site not specified; R10.11 Right upper quadrant pain; F17.200 Nicotine dependence, unspecified, uncomplicated; Z90.49 Acquired absence of other specified parts of digestive tract; Z98.51 Tubal ligation status; Z88.6 Allergy status to analgesic agent
CPT/HCPCS: 99284; 96374; 96361 ×2; 96372; 36415; 80053; 87591; 87491; 85025; 85610; 85730; 81001; 87808; 87070; 87086; 74177; J0696; J2270; Q9967; 87205

== ENCOUNTER 2017-03-01 19:54 | Emergency (ER) | payer SELFPAY ==
[2017-03-01] MEDS ORDERED: IPRATROPIUM-ALBUTEROL 3 ML NEB INHALATION STA (20:07)
--- NOTE | 2017-03-01 20:13 | ED ---
URI HPI - General Chief Complaint: Upper Respiratory Infection Stated Complaint: Cough Time Seen by Provider: 03/01/17 20:02 Source: patient, RN notes reviewed Mode of arrival: ambulatory Limitations: no limitations - History of Present Illness Initial Comments: This a 36-year-old female presents emergency Department chief complaint cough. Patient states she's been sick for last week. She states she's tried multiple [id number]-[id number] medications with no relief. Patient is a daily smoker for last 20 years. Patient states her cough is minimally productive. Denies fever rash chills denies chest pain. Patient states she does have some shortness of breath. Patient denies any palpitations, headache, dizziness, ear pain. She does have large amount of sinus congestion. Symptoms are worse when she lays down denies any lower leg swelling. - Related Data Previous Rx's Medication Instructions Recorded Albuterol Sulfate [Proair Hfa] 1 - 2 puff INHALATION Q4HR PRN #1 03/01/17 inhaler Azithromycin [Zithromax Z-pack] 0 mg PO DIRECTED #1 pack 03/01/17 Promethaz-Cod 6.25-10 mg/5 ml 5 ml PO Q6HR PRN #120 ml 03/01/17 [Phenergan with Codeine] methylPREDNISolone [Medrol Dose 4 mg PO DIRECTED #1 pack 03/01/17 Pack] Allergies Allergy/AdvReac Type Severity Reaction Status Date / Time ibuprofen [From Motrin] Allergy Itching Verified 03/01/17 20:24 Review of Systems ROS Statement: Those systems with pertinent positive or pertinent negative responses have been documented in the HPI. ROS Other: All systems not noted in ROS Statement are negative. Past Medical History Past Medical History: Osteoarthritis (OA) Additional Past Medical History / Comment(s): CURRENT TORN RT ACL History of Any Multi-Drug Resistant Organisms: None Reported Past Surgical History: Section, Cholecystectomy, Orthopedic Surgery, Tubal Ligation Additional Past Surgical History / Comment(s): right knee Past Anesthesia/Blood Transfusion Reactions: No Reported Reaction Past Psychological History: Depression Smoking Status: Current every day smoker Past Alcohol Use History: None Reported Past Drug Use History: None Reported - Past Family History Mother Family Medical History: No Reported History General Exam Limitations: no limitations General appearance: alert, in no apparent distress Head exam: Present: atraumatic, normocephalic, normal inspection Eye exam: Present: normal appearance, PERRL, EOMI. Absent: scleral icterus, conjunctival injection, periorbital swelling ENT exam: Present: mucous membranes moist, TM's normal bilaterally, normal external ear exam. Absent: normal exam, normal oropharynx (Postnasal drainage) Neck exam: Present: normal inspection, full ROM. Absent: tenderness, meningismus, lymphadenopathy Respiratory exam: Present: wheezes. Absent: normal lung sounds bilaterally, respiratory distress, rales, rhonchi, stridor Cardiovascular Exam: Present: regular rate, normal rhythm, normal heart sounds. Absent: systolic murmur, diastolic murmur, rubs, gallop, clicks Neurological exam: Present: alert, oriented X3, CN II-XII intact Skin exam: Present: warm, dry, intact, normal color. Absent: rash Course Vital Signs 03/01/17 19:56 Temperature 99 F Pulse Rate 85 Respiratory 16 Rate Blood Pressure 140/65 O2 Sat by Pulse 100 Oximetry Medical Decision Making - Medical Decision Making 36-year-old female presented for cough congestion. Patient has acute bronchitis. Patient is a chronic smoker was counseled in detail greater than 3 minutes for smoking cessation. Patient was started on azithromycin, a Dosepak, pro-air inhaler, Disposition Clinical Impression: Bronchitis Disposition: HOME SELF-CARE Condition: Stable Instructions: Acute Bronchitis (ED) Additional Instructions: Please return to the Emergency Department if symptoms worsen or any other concerns. Prescriptions: Albuterol Sulfate [Proair Hfa] 1 - 2 puff INHALATION Q4HR PRN #1 inhaler PRN Reason: difficulty in breathing Azithromycin [Zithromax Z-pack] 0 mg PO DIRECTED #1 pack methylPREDNISolone [Medrol Dose Pack] 4 mg PO DIRECTED #1 pack Promethaz-Cod 6.25-10 mg/5 ml [Phenergan with Codeine] 5 ml PO Q6HR PRN #120 ml PRN Reason: Cough Referrals: Son Verdugo MD [Primary Care Provider] - 1-2 days Time of Disposition: 20:33
--- NOTE | 2017-03-01 20:28 | XR ---
EXAMINATION TYPE: XR chest 2V DATE OF EXAM: 03/01/2017 COMPARISON: Chest x-ray October 29, 2016 HISTORY: Cough for one week. TECHNIQUE: Frontal and lateral views of the chest are obtained. FINDINGS: There is no focal air space opacity, pleural effusion, or pneumothorax seen. The cardiac silhouette size is within normal limits. The osseous structures are intact. IMPRESSION: No suspicious acute pulmonary process. No significant change from prior.
[2017-03-01 21:13] VITALS: BP 142/70; PULSE 80; RESP 18; TEMP 97.6
== END 2017-03-01 21:12 | disposition home or self-care (01) ==
LOC: EC 19:54
DX: J20.9 Acute bronchitis, unspecified (principal); Z71.6 Tobacco abuse counseling; F17.200 Nicotine dependence, unspecified, uncomplicated; Z88.6 Allergy status to analgesic agent
CPT/HCPCS: 71020; 94640; 99283

== ENCOUNTER 2017-03-28 17:20 | Emergency (ER) | payer BC, OTHER ==
--- NOTE | 2017-03-28 18:10 | ED ---
Upper Extremity HPI - General Chief Complaint: Extremity Injury, Upper Stated Complaint: RT AMR INJURY Time Seen by Provider: 03/28/17 17:52 Source: patient Mode of arrival: ambulatory Limitations: no limitations - History of Present Illness Initial Comments: Patient is a right-handed 37-year-old female presenting to the emergency department with chief complaint of right wrist and hand pain. Patient states she was moving some boxes yesterday around 3 PM when a box fell and landed on her wrist. Patient states she had a previous sprained wrist to her right arm approximately 4 years ago. Patient is complaining of a sharp pain with flexion and extension of her right wrist with pain radiating into her hand distal to her fourth and fifth digit. Patient denies numbness or tingling. Patient states she took Advil and Tylenol at home with minimal relief. Patient denies recent illness, chills, fevers, nausea, vomiting, shortness of breath, chest pain, or abdominal pain. - Related Data Previous Rx's Medication Instructions Recorded Albuterol Sulfate [Proair Hfa] 1 - 2 puff INHALATION Q4HR PRN #1 03/01/17 inhaler Allergies Allergy/AdvReac Type Severity Reaction Status Date / Time ibuprofen [From Motrin] Allergy Itching Verified 03/28/17 17:51 Review of Systems ROS Statement: Those systems with pertinent positive or pertinent negative responses have been documented in the HPI. ROS Other: All systems not noted in ROS Statement are negative. Past Medical History Past Medical History: Osteoarthritis (OA) Additional Past Medical History / Comment(s): CURRENT TORN RT ACL History of Any Multi-Drug Resistant Organisms: None Reported Past Surgical History: Section, Cholecystectomy, Orthopedic Surgery, Tubal Ligation Additional Past Surgical History / Comment(s): right knee Past Anesthesia/Blood Transfusion Reactions: No Reported Reaction Past Psychological History: Depression Smoking Status: Current every day smoker Past Alcohol Use History: None Reported Past Drug Use History: None Reported - Past Family History Mother Family Medical History: No Reported History General Exam Limitations: no limitations General appearance: alert, in no apparent distress Head exam: Present: atraumatic, normocephalic, normal inspection Eye exam: Present: normal appearance ENT exam: Present: normal exam, mucous membranes moist, normal external ear exam Neck exam: Present: normal inspection, full ROM. Absent: tenderness, meningismus Respiratory exam: Present: normal lung sounds bilaterally. Absent: respiratory distress, wheezes, rales, rhonchi, chest wall tenderness Cardiovascular Exam: Present: regular rate, normal rhythm, normal heart sounds. Absent: systolic murmur GI/Abdominal exam: Present: soft, normal bowel sounds. Absent: distended, tenderness Right Shoulder Exam: Present: normal inspection, full ROM. Absent: tenderness, swelling Upper Arm exam: Present: normal inspection, full ROM. Absent: tenderness, swelling Elbow exam: Present: normal inspection, full ROM. Absent: tenderness, swelling Forearm Wrist exam: Present: normal inspection, full ROM (Full range of motion of but painful with flexion and extension), tenderness. Absent: swelling, ecchymosis, deformity, erythema, tenderness over anatomical snuff box, pain with axial thumb loading Hand Wrist exam: Present: normal inspection, full ROM, tenderness. Absent: swelling, ecchymosis, deformity, erythema Neuro motor exam: Present: wrist extension intact, thumb opposition intact, thumb IP flexion intact, thumb adduction intact, fingers 2-5 abduction intact Neurosensory exam: Present: 2-point discrimination, radial nerve intact, ulnar nerve intact, median nerve intact Vascular: Present: normal capillary refill, radial pulse, brachial pulse, ulnar pulse. Absent: vascular compromise Back exam: Present: normal inspection, full ROM. Absent: muscle spasm, paraspinal tenderness, vertebral tenderness Neurological exam: Present: alert, oriented X3, CN II-XII intact, normal gait, motor sensory deficit, reflexes normal Psychiatric exam: Present: normal affect, normal mood Skin exam: Present: warm, dry, intact, normal color Course Vital Signs 03/28/17 17:48 Temperature 98.2 F Pulse Rate 85 Respiratory 18 Rate Blood Pressure 128/64 O2 Sat by Pulse 95 Oximetry Medical Decision Making - Medical Decision Making Right wrist and hand pain. X-ray of right wrist and right hand negative for dislocation or fracture. Patient instructed to continue Advil and Tylenol, heat and ice for pain. Patient instructed to follow-up with [facility] if pain persist. Patient agrees with treatment plan. Discharge instructions and return parameters reviewed. - Radiology Data Radiology results: report reviewed Right wrist x-ray: No fracture or dislocation. Carpal bones appear intact. Right hand x-ray: No fracture or dislocation. Joint spaces are normal. Carpals appear intact. Disposition Clinical Impression: Pain in right wrist Disposition: HOME SELF-CARE Condition: Good Instructions: Wrist Injury (ED) Additional Instructions: Continue Tylenol for pain. Continue dano wrap for comfort and support as needed. May use ice or heat for comfort. Follow-up with [facility] if pain persist. Please return to the emergency department with any new or worsening symptoms. Referrals: Son Verdugo MD [Primary Care Provider] - 1-2 days Mason Calderon MD [STAFF PHYSICIAN] - 1-2 days Time of Disposition: 18:33
--- NOTE | 2017-03-28 18:27 | XR ---
EXAMINATION TYPE: XR hand complete RT DATE OF EXAM: 03/28/2017 COMPARISON: NONE HISTORY: Pain TECHNIQUE: 3 views FINDINGS: I see no fracture nor dislocation. Joint spaces are normal. The carpals appear intact. IMPRESSION: Negative right hand exam
--- NOTE | 2017-03-28 18:28 | XR ---
EXAMINATION TYPE: XR wrist complete RT DATE OF EXAM: 03/28/2017 COMPARISON: NONE HISTORY: Pain TECHNIQUE: 4 views FINDINGS: I see no fracture nor dislocation. Carpal bones appear intact. IMPRESSION: Normal right wrist exam
[2017-03-28 18:57] VITALS: BP 141/80; PULSE 99; RESP 20; TEMP 98
== END 2017-03-28 18:57 | disposition home or self-care (01) ==
LOC: EC 17:20
DX: M25.531 Pain in right wrist (principal); M79.641 Pain in right hand; F17.200 Nicotine dependence, unspecified, uncomplicated; Z88.6 Allergy status to analgesic agent; X50.9XXA Other and unspecified overexertion or strenuous movements or postures, initial encounter
CPT/HCPCS: 99283

== ENCOUNTER 2017-10-14 00:58 | Emergency (ER) | payer OTHER ==
[2017-10-14 01:04] VITALS: BP 134/86; PULSE 90; RESP 18; TEMP 98.6
[2017-10-14] MEDS ORDERED: CLINDAMYCIN 150 MG CAP PO STA (01:41)
[2017-10-14] MEDS ORDERED: ACET/COD 300 MG/30 MG STARTER PACK 6 TAB BTL PO STA (01:41)
[2017-10-14] MEDS ORDERED: IBUPROFEN 600 MG STARTER PACK 4 TAB BTL PO STA (01:41)
--- NOTE | 2017-10-14 01:44 | ED ---
ENT HPI - General Chief complaint: Dental/Oral Stated complaint: tooth pain Time Seen by Provider: 10/14/17 01:25 Source: patient, RN notes reviewed, old records reviewed Mode of arrival: ambulatory Limitations: no limitations - History of Present Illness Initial comments: Patient is a 37-year-old female with a history of Gemma Tovar presents with a broken upper right side of tooth after she bit on food this weekend. She states that over the past day she's had increased pain over the tooth and swelling of the face. Patient denies any fevers or chills. Denies trismus. She does have a foul taste in her mouth. - Related Data Previous Rx's Medication Instructions Recorded Acetaminophen-Codeine 300-30mg 1 tab PO Q4H PRN 3 Days #18 tablet 10/14/17 [Tylenol w/codeine #3] Clindamycin [Cleocin] 450 mg PO TID 7 Days capsule 10/14/17 Ibuprofen [Motrin] 600 mg PO Q6HR PRN #20 tab 10/14/17 Allergies Allergy/AdvReac Type Severity Reaction Status Date / Time No Known Allergies Allergy Verified 10/14/17 01:04 Review of Systems ROS Statement: Those systems with pertinent positive or pertinent negative responses have been documented in the HPI. ROS Other: All systems not noted in ROS Statement are negative. Past Medical History Past Medical History: Osteoarthritis (OA) Additional Past Medical History / Comment(s): CURRENT TORN RT ACL History of Any Multi-Drug Resistant Organisms: None Reported Past Surgical History: Section, Cholecystectomy, Orthopedic Surgery, Tubal Ligation Additional Past Surgical History / Comment(s): right knee Past Anesthesia/Blood Transfusion Reactions: No Reported Reaction Past Psychological History: Depression Smoking Status: Current every day smoker Past Alcohol Use History: None Reported Past Drug Use History: None Reported - Past Family History Mother Family Medical History: No Reported History General Exam - General Exam Comments Initial Comments: This is a 37 year old female. Moderate discomfort. Limitations: no limitations General appearance: alert, in no apparent distress Head exam: Present: atraumatic, normocephalic, normal inspection Eye exam: Present: normal appearance, PERRL, EOMI. Absent: scleral icterus, conjunctival injection, periorbital swelling ENT exam: Present: mucous membranes moist, other (dental abscess over right upper tooth. ). Absent: normal exam Neck exam: Present: normal inspection. Absent: tenderness, meningismus, lymphadenopathy Respiratory exam: Present: normal lung sounds bilaterally. Absent: respiratory distress, wheezes, rales, rhonchi, stridor Cardiovascular Exam: Present: regular rate, normal rhythm, normal heart sounds. Absent: systolic murmur, diastolic murmur, rubs, gallop, clicks GI/Abdominal exam: Present: soft, normal bowel sounds. Absent: distended, tenderness, guarding, rebound, rigid Neurological exam: Present: alert, oriented X3, CN II-XII intact Psychiatric exam: Present: normal affect, normal mood Skin exam: Present: warm, dry, intact, normal color. Absent: rash Course Vital Signs 10/14/17 01:02 Temperature 98.6 F Pulse Rate 90 Respiratory 18 Rate Blood Pressure 134/86 O2 Sat by Pulse 98 Oximetry Medical Decision Making - Medical Decision Making This patient is a 37 year old femael with broken tooth 10, and dental abscess. Facial swelling noted, no trismus. I was able to drain abscess with 18 gauge needle. Will start patient on clindamycin. Discussed follow up with dental clinic. REturn parameters dsicussed. Will discharge with pain medication and return parameters discussed. Disposition Clinical Impression: Dental abscess Disposition: HOME SELF-CARE Condition: Good Instructions: Dental Abscess (ED) Additional Instructions: [facility] [address] [place] [address] [phone] (existing clients only) For new clients: [phone] 1st consult: $50 (includes Xrays) Usually 30% less then private dentist for visits after. [employer] Have to pay $50 for Xrays anmd rest is covered. [phone] Is advised to take all the antibiotics. Return to the emergency department if any alarming signs or symptoms occur. Prescriptions: Acetaminophen-Codeine 300-30mg [Tylenol w/codeine #3] 1 tab PO Q4H PRN 3 Days # 18 tablet PRN Reason: Pain Clindamycin [Cleocin] 450 mg PO TID 7 Days capsule Ibuprofen [Motrin] 600 mg PO Q6HR PRN #20 tab PRN Reason: Pain Is patient prescribed a controlled substance at d/c from ED?: Yes When asked, does pt state using other controlled substances?: No If prescribed controlled substance>3 days was MAPS reviewed?: Prescribed <3 Days If opioid is for acute pain is fill amount 7 days or less?: No If Rx opioid, was Start Talking consent form obtained?: No Referrals: Son Verdugo MD [Primary Care Provider] - 1-2 days Time of Disposition: 01:42
== END 2017-10-14 02:02 | disposition home or self-care (01) ==
LOC: EC 00:58
DX: K04.7 Periapical abscess without sinus (principal); S02.5XXA Fracture of tooth (traumatic), initial encounter for closed fracture; F17.200 Nicotine dependence, unspecified, uncomplicated; X58.XXXA Exposure to other specified factors, initial encounter; Y93.89 Activity, other specified
CPT/HCPCS: 41800; 99283

== ENCOUNTER 2018-01-17 19:00 | Emergency (ER) | payer BC, OTHER ==
[2018-01-17 19:09] VITALS: RESP 16; TEMP 98.1
[2018-01-17] MEDS ORDERED: SODIUM CHLORIDE 0.9% 1,000 ML IV STA (19:50)
[2018-01-17] MEDS ORDERED: MORPHINE SULFATE 4 MG/ML SYRINGE IV STA (19:50)
[2018-01-17] MEDS ORDERED: ONDANSETRON 4 MG/2 ML VIAL IVP STA (19:50)
[2018-01-17 20:31] LABS: Basophils # (A) 0.1 k/uL (0-0.2); Basophils % (A) 1 %; Eosinophils # (A) 0.3 k/uL (0-0.7); Eosinophils % (A) 5 %; HCT 40.1 % (34.0-46.0); HGB 13.5 gm/dL (11.4-16.0); Lymphocytes # (A) 2.4 k/uL (1.0-4.8); Lymphocytes % (A) 34 %; MCH 29.2 pg (25.0-35.0); MCHC 33.6 g/dL (31.0-37.0); MCV 86.7 fL (80.0-100.0); Mean Platelet Volume 8.2; Monocytes # (A) 0.3 k/uL (0-1.0); Monocytes % (A) 5 %; Neutrophils # (A) 3.8 k/uL (1.3-7.7); Neutrophils % (A) 55 %; Platelet Count 225 k/uL (150-450); RBC 4.62 m/uL (3.80-5.40)
[2018-01-17 20:37] LABS: Appearance,Urine Turbid (Clear); Bilirubin,Urine Negative (Negative); Blood,Urine Negative (Negative); Color,Urine Yellow; Glucose,Urine (UA) Negative (Negative); Ketones,Urine Negative (Negative); Leukocyte Esterase,Urine Large (Negative); Mucus,Urine Rare /hpf; Nitrite,Urine Negative (Negative); Protein,Urine 1+ (Negative); RBC,Urine 8 /hpf (0-5); Specific Gravity,Urine 1.019 (1.001-1.035); Squamous Epithelial Cell,Urine 63 /hpf (0-4); Urobilinogen,Urine <2.0 mg/dL (<2.0); WBC,Urine >182 /hpf (0-5)
[2018-01-17 20:42] LABS: ALT 28 U/L (9-52); AST 23 U/L (14-36); Albumin 3.7 g/dL (3.5-5.0); Alkaline Phosphatase 56 U/L (38-126); Amylase 44 U/L (30-110); Anion Gap 8 mmol/L; Blood Urea Nitrogen 11 mg/dL (7-17); Calcium 9.4 mg/dL (8.4-10.2); Carbon Dioxide 26 mmol/L (22-30); Chloride 105 mmol/L (98-107); Glucose 100 mg/dL (74-99); Lipase 93 U/L (23-300); Potassium 3.8 mmol/L (3.5-5.1); Sodium 139 mmol/L (137-145); Total Bilirubin 0.4 mg/dL (0.2-1.3); Total Protein 6.3 g/dL (6.3-8.2)
[2018-01-17] MEDS ORDERED: cefTRIAXone IN SWFI 1,000 MG/10 ML SYRINGE IVP STA (20:49)
[2018-01-17] MEDS ORDERED: KETOROLAC 30 MG/ML 1 ML VIAL IVP STA (20:53)
--- NOTE | 2018-01-17 20:53 | ED ---
Abdominal Pain HPI - General Chief Complaint: Abdominal Pain Stated Complaint: Side pain Time Seen by Provider: 01/17/18 19:26 Source: patient Mode of arrival: ambulatory Limitations: no limitations - History of Present Illness Initial Comments: 37 year-old female patient presents the emergency department today for evaluation of bilateral flank pain. Patient describes the pain as aching sharp pain. Patient states that is worse on the left than the right. Patient states she has been nauseated but has not vomited. She denies any abnormal vaginal bleeding or discharge. Denies any constipation or diarrhea. Patient states that symptoms started 2 days ago. Patient states that she has had some decreased urine output. Denies any hematuria, dysuria, urinary frequency, urinary urgency. Denies any history of similar symptoms. She has not had any fevers or chills with this. Patient denies any recent rash, shortness breath, chest pain, diarrhea, constipation, numbness, tingling, dizziness, weakness, hematuria, dysuria, urinary urgency, urinary frequency, headache, visual changes , or any other complaints. Denies any concern for STDs. - Related Data Previous Rx's Medication Instructions Recorded Acetaminophen-Codeine 300-30mg 1 tab PO Q4H PRN 3 Days #18 tablet 10/14/17 [Tylenol w/codeine #3] Clindamycin [Cleocin] 450 mg PO TID 7 Days capsule 10/14/17 Ibuprofen [Motrin] 600 mg PO Q6HR PRN #20 tab 10/14/17 Sulfamethoxazole/Trimethoprim 1 each PO BID #20 tablet 01/17/18 [Bactrim DS 800-160 mg] Allergies Allergy/AdvReac Type Severity Reaction Status Date / Time No Known Allergies Allergy Verified 01/17/18 19:09 Review of Systems ROS Statement: Those systems with pertinent positive or pertinent negative responses have been documented in the HPI. ROS Other: All systems not noted in ROS Statement are negative. Past Medical History Past Medical History: Osteoarthritis (OA) Additional Past Medical History / Comment(s): CURRENT TORN RT ACL History of Any Multi-Drug Resistant Organisms: None Reported Past Surgical History: Section, Cholecystectomy, Orthopedic Surgery, Tubal Ligation Additional Past Surgical History / Comment(s): right knee Past Anesthesia/Blood Transfusion Reactions: No Reported Reaction Past Psychological History: Depression Smoking Status: Current every day smoker Past Alcohol Use History: None Reported Past Drug Use History: None Reported - Past Family History Mother Family Medical History: No Reported History General Exam Limitations: no limitations General appearance: alert, in no apparent distress, other (This is a well- developed, well-nourished adult female patient in no acute distress. Vital signs upon presentation are temperature 98.1F, pulse 97, respirations 16, blood pressure 121/75, pulse ox 99% on room air.) Eye exam: Present: normal appearance, PERRL, EOMI. Absent: scleral icterus, conjunctival injection, periorbital swelling ENT exam: Present: normal exam, normal oropharynx, mucous membranes moist Respiratory exam: Present: normal lung sounds bilaterally. Absent: respiratory distress, wheezes, rales, rhonchi, stridor Cardiovascular Exam: Present: regular rate, normal rhythm, normal heart sounds. Absent: systolic murmur, diastolic murmur, rubs, gallop, clicks GI/Abdominal exam: Present: soft, normal bowel sounds. Absent: distended, tenderness, guarding, rebound, rigid Back exam: Present: normal inspection, CVA tenderness (R), CVA tenderness (L) Neurological exam: Present: alert, oriented X3, CN II-XII intact Psychiatric exam: Present: normal affect, normal mood Skin exam: Present: warm, dry, intact, normal color. Absent: rash Course Vital Signs 01/17/18 01/17/18 19:06 22:05 Temperature 98.1 F Pulse Rate 97 84 Respiratory 16 16 Rate Blood Pressure 121/75 125/72 O2 Sat by Pulse 99 99 Oximetry Medical Decision Making - Medical Decision Making 37 old female patient presents to the emergency department today for evaluation of bilateral flank pain and some superpubic cramping. Physical examination did reveal some bilateral CVA tenderness. Vital signs are stable, she is afebrile. Labs reviewed and showed a normal white blood cell count. Urinalysis showed a turbid appearance with 1+ protein, leukocyte esterase, 8 red blood cells, greater than 182 white blood cells, 63 squamous epithelial cells, and rare mucous. HCG is negative. Did discuss findings and results with the patient. She denies any concern for STDs, is not having any vaginal discharge. We will treat her for urinary tract infection with Bactrim. She be given an IV dose of Rocephin here. She is instructed to follow up with her primary care physician for recheck in 1-2 days. Return parameters discussed in detail. She verbalizes understanding and agrees with this plan. - Lab Data Result diagrams: 01/17/18 20:22 01/17/18 20:22 Lab Results 01/17/18 01/17/18 01/17/18 Range/Units 20:22 20:22 20:22 WBC 7.0 (3.8-10.6) k/uL RBC 4.62 (3.80-5.40) m/uL Hgb 13.5 (11.4-16.0) gm/dL Hct 40.1 (34.0-46.0) % MCV 86.7 (80.0-100.0) fL MCH 29.2 (25.0-35.0) pg MCHC 33.6 (31.0-37.0) g/dL RDW 13.0 (11.5-15.5) % Plt Count 225 (150-450) k/uL Neutrophils % 55 % Lymphocytes % 34 % Monocytes % 5 % Eosinophils % 5 % Basophils % 1 % Neutrophils # 3.8 (1.3-7.7) k/uL Lymphocytes # 2.4 (1.0-4.8) k/uL Monocytes # 0.3 (0-1.0) k/uL Eosinophils # 0.3 (0-0.7) k/uL Basophils # 0.1 (0-0.2) k/uL Sodium 139 (137-145) mmol/L Potassium 3.8 (3.5-5.1) mmol/L Chloride 105 (98-107) mmol/L Carbon Dioxide 26 (22-30) mmol/L Anion Gap 8 mmol/L BUN 11 (7-17) mg/dL Creatinine 0.70 (0.52-1.04) mg/dL Est GFR (CKD-EPI)AfAm >90 (>60 ml/min/1.73 sqM) Est GFR (CKD-EPI)NonAf >90 (>60 ml/min/1.73 sqM) Glucose 100 H (74-99) mg/dL Calcium 9.4 (8.4-10.2) mg/dL Total Bilirubin 0.4 (0.2-1.3) mg/dL AST 23 (14-36) U/L ALT 28 (9-52) U/L Alkaline Phosphatase 56 (38-126) U/L Total Protein 6.3 (6.3-8.2) g/dL Albumin 3.7 (3.5-5.0) g/dL Amylase 44 (30-110) U/L Lipase 93 (23-300) U/L Urine Color Urine Appearance (Clear) Urine pH (5.0-8.0) Ur Specific Dewar (1.001-1.035) Urine Protein (Negative) Urine Glucose (UA) (Negative) Urine Ketones (Negative) Urine Blood (Negative) Urine Nitrite (Negative) Urine Bilirubin (Negative) Urine Urobilinogen (<2.0) mg/dL Ur Leukocyte Esterase (Negative) Urine RBC (0-5) /hpf Urine WBC (0-5) /hpf Ur Squamous Epith Cells (0-4) /hpf Urine Mucus (None) /hpf Urine HCG, Qual Not Detected (Not Detectd) 01/17/18 Range/Units 20:22 WBC (3.8-10.6) k/uL RBC (3.80-5.40) m/uL Hgb (11.4-16.0) gm/dL Hct (34.0-46.0) % MCV (80.0-100.0) fL MCH (25.0-35.0) pg MCHC (31.0-37.0) g/dL RDW (11.5-15.5) % Plt Count (150-450) k/uL Neutrophils % % Lymphocytes % % Monocytes % % Eosinophils % % Basophils % % Neutrophils # (1.3-7.7) k/uL Lymphocytes # (1.0-4.8) k/uL Monocytes # (0-1.0) k/uL Eosinophils # (0-0.7) k/uL Basophils # (0-0.2) k/uL Sodium (137-145) mmol/L Potassium (3.5-5.1) mmol/L Chloride (98-107) mmol/L Carbon Dioxide (22-30) mmol/L Anion Gap mmol/L BUN (7-17) mg/dL Creatinine (0.52-1.04) mg/dL Est GFR (CKD-EPI)AfAm (>60 ml/min/1.73 sqM) Est GFR (CKD-EPI)NonAf (>60 ml/min/1.73 sqM) Glucose (74-99) mg/dL Calcium (8.4-10.2) mg/dL Total Bilirubin (0.2-1.3) mg/dL AST (14-36) U/L ALT (9-52) U/L Alkaline Phosphatase (38-126) U/L Total Protein (6.3-8.2) g/dL Albumin (3.5-5.0) g/dL Amylase (30-110) U/L Lipase (23-300) U/L Urine Color Yellow Urine Appearance Turbid H (Clear) Urine pH 6.0 (5.0-8.0) Ur Specific Dewar 1.019 (1.001-1.035) Urine Protein 1+ H (Negative) Urine Glucose (UA) Negative (Negative) Urine Ketones Negative (Negative) Urine Blood Negative (Negative) Urine Nitrite Negative (Negative) Urine Bilirubin Negative (Negative) Urine Urobilinogen <2.0 (<2.0) mg/dL Ur Leukocyte Esterase Large H (Negative) Urine RBC 8 H (0-5) /hpf Urine WBC >182 H (0-5) /hpf Ur Squamous Epith Cells 63 H (0-4) /hpf Urine Mucus Rare H (None) /hpf Urine HCG, Qual (Not Detectd) Disposition Clinical Impression: Urinary tract infection Disposition: HOME SELF-CARE Condition: Good Instructions: Urinary Tract Infection in Women (ED) Additional Instructions: Increase fluids. Follow-up with your primary care physician for recheck and repeat urinalysis was antibiotics are complete. Return here immediately for any new, worsening, or concerning symptoms. Prescriptions: Sulfamethoxazole/Trimethoprim [Bactrim DS 800-160 mg] 1 each PO BID #20 tablet Is patient prescribed a controlled substance at d/c from ED?: No Referrals: Son Verdugo MD [Primary Care Provider] - 1-2 days Time of Disposition: 20:53
[2018-01-17 22:06] VITALS: BP 125/72; PULSE 84
== END 2018-01-17 22:09 | disposition home or self-care (01) ==
LOC: EC 19:00
DX: N39.0 Urinary tract infection, site not specified (principal); F17.200 Nicotine dependence, unspecified, uncomplicated; Z98.51 Tubal ligation status; Z90.49 Acquired absence of other specified parts of digestive tract; Z98.890 Other specified postprocedural states
CPT/HCPCS: 99284; 96374; 96375 ×3; 96361; 36415; 80053; 82150; 83690; 85025; 81001; 81025; 87040; 87086; J2270; J2405; J0696; J1885

== ENCOUNTER → 2018-01-28 | Outpatient (CLI) | payer BC, OTHER ==
--- NOTE | 2018-01-28 15:36 | CT ---
EXAMINATION TYPE: CT abdomen pelvis wo con DATE OF EXAM: 01/28/2018 COMPARISON: Prior CT abdomen pelvis 12/05/2016 HISTORY: LLQ pain, kidney stone CT DLP: 808.3 mGycm Automated exposure control for dose reduction was used. TECHNIQUE: Helical acquisition of images from the lung bases through the pelvis. FINDINGS: Lack of contrast could compromise sensitivity. LUNG BASES: No significant abnormality is appreciated. AORTA: No significant abnormality is appreciated. LIVER/GB: Liver shows no mass. Patient is post cholecystectomy. Liver is enlarged PANCREAS: No significant abnormality is seen. SPLEEN: No significant abnormality is seen. ADRENALS: No significant abnormality is seen. KIDNEYS: No significant abnormality is seen. No evident renal stone or hydronephrosis, no ureteral ca lculus evident. REPRODUCTIVE ORGANS: Fallopian tubal ligation clips are in place, uterus is unremarkable.. URINARY BLADDER: Contracted, wall thickening BOWEL: No significant abnormality is seen. The appendix is normal. Small umbilical hernia contains f at FREE AIR: No Free Air is visible. ASCITES: None visible. PELVIC ADENOPATHY: None visualized. RETROPERITONEAL ADENOPATHY: No Retroperitoneal Adenopathy visible. OSSEOUS STRUCTURES: No significant abnormality is seen. IMPRESSION: NONCONTRAST EXAM. NO SIGNIFICANT INTERVAL CHANGE. POSTOP CHANGES.
== END | disposition home or self-care (01) ==
LOC: RADCTMAIN 14:51
PROVIDERS: ATTEND Family Medicine
DX: R10.32 Left lower quadrant pain (principal); Z90.49 Acquired absence of other specified parts of digestive tract; Z98.51 Tubal ligation status
CPT/HCPCS: 74176

== ENCOUNTER 2018-06-28 16:28 | Emergency (ER) | payer BC, OTHER ==
[2018-06-28 16:42] VITALS: TEMP 98
[2018-06-28] MEDS ORDERED: SODIUM CHLORIDE 0.9% 1,000 ML IV STA ×2 (17:48→19:34)
--- NOTE | 2018-06-28 18:04 | ED ---
General Adult HPI - General Chief complaint: ENT Stated complaint: Face and throat swollen Time Seen by Provider: 06/28/18 17:34 Source: patient, RN notes reviewed, old records reviewed Mode of arrival: ambulatory Limitations: no limitations - History of Present Illness Initial comments: 38-year-old female patient presents to ED with 2 days of sore throat, tender cervical lymphadenopathy. Patient additionally complains of some sinus congestion, dry cough. Patient denies fevers and chills at home. Patient denies chest pain, shortness breath or abdominal pain. Systemic: Pt denies fatigue, myalgia, fever/chills, rash. Pt denies weakness, night sweats, weight loss. Neuro: Pt denies headache, visual disturbances, syncope or pre-syncope. HEENT: Pt denies ocular discharge or irritation, otalgia. Cardiopulmonary: Pt denies chest pain, SOB, heart palpitations, dyspnea on exertion. Abdominal/GI: Pt denies abdominal pain, n/v/d. : Pt denies dysuria, burning w/ urination, frequency/urgency. Denies new onset urinary or bowel incontinence. MSK: Pt denies myalgia, loss of strength or function in extremities. Neuro: Pt denies new onset weakness, paresthesias. - Related Data Previous Rx's Medication Instructions Recorded Acetaminophen-Codeine 300-30mg 1 tab PO Q4H PRN 3 Days #18 tablet 10/14/17 [Tylenol w/codeine #3] Clindamycin [Cleocin] 450 mg PO TID 7 Days capsule 10/14/17 Ibuprofen [Motrin] 600 mg PO Q6HR PRN #20 tab 10/14/17 Sulfamethoxazole/Trimethoprim 1 each PO BID #20 tablet 01/17/18 [Bactrim DS 800-160 mg] Amoxicillin 500 mg PO Q12HR 10 Days #20 day 06/28/18 Allergies Allergy/AdvReac Type Severity Reaction Status Date / Time No Known Allergies Allergy Verified 06/28/18 16:39 Review of Systems ROS Statement: Those systems with pertinent positive or pertinent negative responses have been documented in the HPI. ROS Other: All systems not noted in ROS Statement are negative. Past Medical History Past Medical History: Osteoarthritis (OA) Additional Past Medical History / Comment(s): CURRENT TORN RT ACL History of Any Multi-Drug Resistant Organisms: None Reported Past Surgical History: Section, Cholecystectomy, Orthopedic Surgery, Tubal Ligation Additional Past Surgical History / Comment(s): right knee Past Anesthesia/Blood Transfusion Reactions: No Reported Reaction Past Psychological History: Depression Smoking Status: Current every day smoker Past Alcohol Use History: Rare Past Drug Use History: None Reported - Past Family History Mother Family Medical History: No Reported History General Exam - General Exam Comments Initial Comments: Constitutional: NAD, AOX3, Pt has pleasant affect. HEENT: NC/AT, trachea midline, neck supple, mild amount tender anterior cervical lymphadenopathy.. Posterior pharynx +2 with exudates. External ears appear normal, without discharge. Mucous membranes moist. Eyes PERRLA, EOM intact. There is no scleral icterus. No pallor noted. Cardiopulmonary: RRR, no murmurs, rubs or gallops, no JVD noted. Lungs CTAB in anterior and posterior sanchez. No peripheral edema. Abdominal exam: Abdomen soft and non-distended. Abdomen non-tender to palpation in all 4 quadrants. Bowel sounds active in LLQ. No hepatosplenomegaly. No ecchymosis Neuro: CN II-XII grossly intact. No nuchal rigidity. MSK: No posterior calf tenderness bilaterally, homans sign negative bilaterally. Posterior tibialis and radial pulse +2 bilaterally. Sensation intact in upper and lower extremities. Full active ROM in upper and lower extremities, 5/5 stregnth. Limitations: no limitations Course Vital Signs 06/28/18 06/28/18 16:39 20:26 Temperature 98 F Pulse Rate 70 66 Respiratory 18 16 Rate Blood Pressure 130/85 115/63 O2 Sat by Pulse 100 100 Oximetry Medical Decision Making - Medical Decision Making 38-year-old female patient presents to ED with 2 days of sore throat, tender cervical lymphadenopathy. Patient additionally complains of some sinus congestion, dry cough. Patient denies fevers and chills at home. Patient denies chest pain, shortness breath or abdominal pain. Pt VSS, afebrile. Physical exam displayed: mild amount tender anterior cervical lymphadenopathy.. Posterior pharynx +2 with exudates. No tenderness [id number] nonspecific CBC, CMP, heterophile negative, influenza swab negative, group A strep negative. Chest clear displayed no acute process. Patient developed some transient nausea evaluation, resolved with Protonix/zofran. Patient treated for streptococcal pharyngitis. Patient to return to ED if new signs symptoms develop or condition worsens in anyway. Pt to f/u with PCP in 1-2 days. Case discussed in depth and pt seen by Dr. Dawkins. - Lab Data Result diagrams: 06/28/18 18:30 06/28/18 18:30 Lab Results 06/28/18 06/28/18 06/28/18 Range/Units 18:30 18:30 18:30 WBC 10.2 (3.8-10.6) k/uL RBC 5.13 (3.80-5.40) m/uL Hgb 14.6 (11.4-16.0) gm/dL Hct 45.2 (34.0-46.0) % MCV 88.0 (80.0-100.0) fL MCH 28.6 (25.0-35.0) pg MCHC 32.4 (31.0-37.0) g/dL RDW 13.5 (11.5-15.5) % Plt Count 287 (150-450) k/uL Neutrophils % 44 % Lymphocytes % 45 % Monocytes % 5 % Eosinophils % 3 % Basophils % 1 % Neutrophils # 4.5 (1.3-7.7) k/uL Lymphocytes # 4.6 (1.0-4.8) k/uL Monocytes # 0.5 (0-1.0) k/uL Eosinophils # 0.3 (0-0.7) k/uL Basophils # 0.1 (0-0.2) k/uL Sodium 139 (137-145) mmol/L Potassium 4.3 (3.5-5.1) mmol/L Chloride 104 (98-107) mmol/L Carbon Dioxide 28 (22-30) mmol/L Anion Gap 7 mmol/L BUN 12 (7-17) mg/dL Creatinine 0.80 (0.52-1.04) mg/dL Est GFR (CKD-EPI)AfAm >90 (>60 ml/min/1.73 sqM) Est GFR (CKD-EPI)NonAf >90 (>60 ml/min/1.73 sqM) Glucose 95 (74-99) mg/dL Calcium 9.4 (8.4-10.2) mg/dL Total Bilirubin 0.3 (0.2-1.3) mg/dL AST 21 (14-36) U/L ALT 30 (9-52) U/L Alkaline Phosphatase 52 (38-126) U/L Total Protein 6.6 (6.3-8.2) g/dL Albumin 4.0 (3.5-5.0) g/dL Heterophile Antibody Negative (Negative) Influenza Type A RNA (Not Detectd) Influenza Type B (PCR) (Not Detectd) Group A Strep Rapid (Negative) 06/28/18 06/28/18 Range/Units 18:30 18:30 WBC (3.8-10.6) k/uL RBC (3.80-5.40) m/uL Hgb (11.4-16.0) gm/dL Hct (34.0-46.0) % MCV (80.0-100.0) fL MCH (25.0-35.0) pg MCHC (31.0-37.0) g/dL RDW (11.5-15.5) % Plt Count (150-450) k/uL Neutrophils % % Lymphocytes % % Monocytes % % Eosinophils % % Basophils % % Neutrophils # (1.3-7.7) k/uL Lymphocytes # (1.0-4.8) k/uL Monocytes # (0-1.0) k/uL Eosinophils # (0-0.7) k/uL Basophils # (0-0.2) k/uL Sodium (137-145) mmol/L Potassium (3.5-5.1) mmol/L Chloride (98-107) mmol/L Carbon Dioxide (22-30) mmol/L Anion Gap mmol/L BUN (7-17) mg/dL Creatinine (0.52-1.04) mg/dL Est GFR (CKD-EPI)AfAm (>60 ml/min/1.73 sqM) Est GFR (CKD-EPI)NonAf (>60 ml/min/1.73 sqM) Glucose (74-99) mg/dL Calcium (8.4-10.2) mg/dL Total Bilirubin (0.2-1.3) mg/dL AST (14-36) U/L ALT (9-52) U/L Alkaline Phosphatase (38-126) U/L Total Protein (6.3-8.2) g/dL Albumin (3.5-5.0) g/dL Heterophile Antibody (Negative) Influenza Type A RNA Not Detected (Not Detectd) Influenza Type B (PCR) Not Detected (Not Detectd) Group A Strep Rapid Negative (Negative) Disposition Clinical Impression: Pharyngitis Disposition: HOME SELF-CARE Condition: Stable Instructions (If sedation given, give patient instructions): Pharyngitis (ED) Additional Instructions: Patient to adhere to previously discussed treatment plan and will take medication(s) as directed. Patient to follow up with PCP in 1-2 days. Patient to return to ED if symptoms do not improve. Prescriptions: Amoxicillin 500 mg PO Q12HR 10 Days #20 day Is patient prescribed a controlled substance at d/c from ED?: No Referrals: Son Verdugo MD [Primary Care Provider] - 1-2 days Time of Disposition: 20:20
[2018-06-28 19:02] LABS: Basophils # (A) 0.1 k/uL (0-0.2); Basophils % (A) 1 %; Eosinophils # (A) 0.3 k/uL (0-0.7); Eosinophils % (A) 3 %; HCT 45.2 % (34.0-46.0); HGB 14.6 gm/dL (11.4-16.0); Lymphocytes # (A) 4.6 k/uL (1.0-4.8); Lymphocytes % (A) 45 %; MCH 28.6 pg (25.0-35.0); MCHC 32.4 g/dL (31.0-37.0); Mean Platelet Volume 7.2; Monocytes # (A) 0.5 k/uL (0-1.0); Monocytes % (A) 5 %; Neutrophils # (A) 4.5 k/uL (1.3-7.7); Neutrophils % (A) 44 %; Platelet Count 287 k/uL (150-450); RBC 5.13 m/uL (3.80-5.40); RDW 13.5 % (11.5-15.5); WBC 10.2 k/uL (3.8-10.6)
--- NOTE | 2018-06-28 19:12 | XR ---
EXAMINATION: XR chest 2V DATE AND TIME: 06/28/2018 6:37 PM CLINICAL INDICATION: PHH; Pain TECHNIQUE: Departmental protocol COMPARISON: 03/01/2017 FINDINGS: The lungs are clear. The pleural spaces are negative. The cardiac silhouette is not enlarged. The remainder of the mediastinal silhouette is unremarkable. The skeletal structures and soft tissues are negative for acute findings. IMPRESSION: NO ACUTE PROCESS.
[2018-06-28 19:19] LABS: ALT 30 U/L (9-52); AST 21 U/L (14-36); Alkaline Phosphatase 52 U/L (38-126); Anion Gap 7 mmol/L; Blood Urea Nitrogen 12 mg/dL (7-17); Calcium 9.4 mg/dL (8.4-10.2); Carbon Dioxide 28 mmol/L (22-30); Chloride 104 mmol/L (98-107); Glucose 95 mg/dL (74-99); Potassium 4.3 mmol/L (3.5-5.1); Sodium 139 mmol/L (137-145); Total Bilirubin 0.3 mg/dL (0.2-1.3); Total Protein 6.6 g/dL (6.3-8.2)
[2018-06-28] MEDS ORDERED: ONDANSETRON 4 MG/2 ML VIAL IVP STA (19:34)
[2018-06-28] MEDS ORDERED: PANTOPRAZOLE 40 MG/10 ML VIAL IVP STA (19:34)
[2018-06-28 20:27] VITALS: BP 115/63; PULSE 66; RESP 16
== END 2018-06-28 20:26 | disposition home or self-care (01) ==
LOC: EC 16:28
DX: J02.0 Streptococcal pharyngitis (principal); R11.0 Nausea; F17.200 Nicotine dependence, unspecified, uncomplicated
CPT/HCPCS: 36415; 80053; 85025; 86308; 87081; 87430; 87502; 71046; 99284; 96374; 96375; 96361 ×2; J2405; C9113

== ENCOUNTER 2018-08-10 14:41 | Emergency (ER) | payer BC, OTHER ==
[2018-08-10 14:49] VITALS: RESP 18; TEMP 98.2
[2018-08-10] MEDS ORDERED: SODIUM CHLORIDE 0.9% 1,000 ML IV STA (15:15)
--- NOTE | 2018-08-10 15:31 | ED ---
General Adult HPI - General Chief complaint: Upper Respiratory Infection Stated complaint: Cough,weak,dizzy Time Seen by Provider: 08/10/18 15:04 Source: patient, RN notes reviewed Mode of arrival: ambulatory - History of Present Illness Initial comments: Patient 38-year-old female presented to the emergency room today with chief complaint of increased cough, bodyaches, fever, chills. Patient does not that the symptoms started yesterday. She does admit to increased symptoms today. States that she's felt dizzy lightheaded at times. Patient does admit that she has some tightness across her chest which feels similar to bronchitis that she's had in the past. Patient denies any other complaints or symptoms. Patient denies any recent fever, chills, shortness of breath, back pain, abdominal pain, nausea or vomiting, numbness or tingling, headaches or visual changes, or any other complaints. - Related Data Home Medications Medication Instructions Recorded Confirmed Ibuprofen [Motrin] 800 mg PO Q8H PRN 08/10/18 08/10/18 Previous Rx's Medication Instructions Recorded Azithromycin [Zithromax Z-pack] 0 mg PO DIRECTED #6 tab 08/10/18 predniSONE 50 mg PO DAILY #5 tab 08/10/18 Allergies Allergy/AdvReac Type Severity Reaction Status Date / Time No Known Allergies Allergy Verified 08/10/18 15:36 Review of Systems ROS Statement: Those systems with pertinent positive or pertinent negative responses have been documented in the HPI. ROS Other: All systems not noted in ROS Statement are negative. Past Medical History Past Medical History: Osteoarthritis (OA) Additional Past Medical History / Comment(s): CURRENT TORN RT ACL History of Any Multi-Drug Resistant Organisms: None Reported Past Surgical History: Section, Cholecystectomy, Orthopedic Surgery, Tubal Ligation Additional Past Surgical History / Comment(s): right knee Past Anesthesia/Blood Transfusion Reactions: No Reported Reaction Past Psychological History: Depression Smoking Status: Current every day smoker Past Alcohol Use History: Rare Past Drug Use History: None Reported - Past Family History Mother Family Medical History: No Reported History General Exam - General Exam Comments Initial Comments: General: The patient is awake and alert, in no distress, and does not appear acutely ill. Eye: There is normal conjunctiva bilaterally. No signs of icterus. Ears, nose, mouth and throat: There are moist mucous membranes and no oral lesions. Neck: The neck is supple, there is no tenderness or JVD. Cardiovascular: There is a regular rate and rhythm. No murmur, rub or gallop is appreciated. Respiratory: Lungs are clear to auscultation, respirations are non-labored, breath sounds are equal. No wheezes, stridor, rales, or rhonchi. Musculoskeletal: Normal ROM, no tenderness. Neurological: A&O x 3. CN II-XII intact, There are no obvious motor or sensory deficits. Coordination appears grossly intact. Speech is normal. Skin: Skin is warm and dry and no rashes or lesions are noted. Psychiatric: Cooperative, appropriate mood & affect, normal judgment. Course Vital Signs 08/10/18 14:46 Temperature 98.2 F Pulse Rate 105 H Respiratory 18 Rate Blood Pressure 128/68 O2 Sat by Pulse 100 Oximetry EKG Findings - EKG Comments: EKG Findings:: EKG performed at 1442: Shows normal sinus rhythm at 67 bpm. AR interval 124. QRS 80. QT/QTC 390/412. No acute ST change. Medical Decision Making - Medical Decision Making Patient labs been reviewed. Patient EKG shows normal sinus rhythm. Troponin negative. Patient does admit to cough congestion starting yesterday. Influenza test is negative here in the Emergency room. Was discussed about possible false negative. Patient's had body aches chills and congestion. Chest x-ray showing no sign of pneumonia. Patient will be treated for a bronchitis she states the symptoms are similar to episodes that she had the past when she was diagnosed with bronchitis. Patient will be started on azithromycin, steroids. Advised follow family doctor next 2 days return here to emergency room if any symptoms worsen. - Lab Data Result diagrams: 08/10/18 15:36 08/10/18 15:36 Lab Results 08/10/18 08/10/18 08/10/18 Range/Units 15:36 15:36 15:36 WBC 9.7 (3.8-10.6) k/uL RBC 4.81 (3.80-5.40) m/uL Hgb 13.7 (11.4-16.0) gm/dL Hct 42.1 (34.0-46.0) % MCV 87.6 (80.0-100.0) fL MCH 28.5 (25.0-35.0) pg MCHC 32.5 (31.0-37.0) g/dL RDW 13.5 (11.5-15.5) % Plt Count 309 (150-450) k/uL Neutrophils % 62 % Lymphocytes % 27 % Monocytes % 4 % Eosinophils % 4 % Basophils % 1 % Neutrophils # 5.9 (1.3-7.7) k/uL Lymphocytes # 2.6 (1.0-4.8) k/uL Monocytes # 0.4 (0-1.0) k/uL Eosinophils # 0.4 (0-0.7) k/uL Basophils # 0.1 (0-0.2) k/uL Sodium 137 (137-145) mmol/L Potassium 3.8 (3.5-5.1) mmol/L Chloride 106 (98-107) mmol/L Carbon Dioxide 25 (22-30) mmol/L Anion Gap 6 mmol/L BUN 9 (7-17) mg/dL Creatinine 0.69 (0.52-1.04) mg/dL Est GFR (CKD-EPI)AfAm >90 (>60 ml/min/1.73 sqM) Est GFR (CKD-EPI)NonAf >90 (>60 ml/min/1.73 sqM) Glucose 101 H (74-99) mg/dL Calcium 8.9 (8.4-10.2) mg/dL Total Bilirubin 0.3 (0.2-1.3) mg/dL AST 43 H (14-36) U/L ALT 105 H (9-52) U/L Alkaline Phosphatase 70 (38-126) U/L Troponin I <0.012 (0.000-0.034) ng/mL Total Protein 6.0 L (6.3-8.2) g/dL Albumin 3.5 (3.5-5.0) g/dL Influenza Type A RNA (Not Detectd) Influenza Type B (PCR) (Not Detectd) 08/10/18 Range/Units 16:00 WBC (3.8-10.6) k/uL RBC (3.80-5.40) m/uL Hgb (11.4-16.0) gm/dL Hct (34.0-46.0) % MCV (80.0-100.0) fL MCH (25.0-35.0) pg MCHC (31.0-37.0) g/dL RDW (11.5-15.5) % Plt Count (150-450) k/uL Neutrophils % % Lymphocytes % % Monocytes % % Eosinophils % % Basophils % % Neutrophils # (1.3-7.7) k/uL Lymphocytes # (1.0-4.8) k/uL Monocytes # (0-1.0) k/uL Eosinophils # (0-0.7) k/uL Basophils # (0-0.2) k/uL Sodium (137-145) mmol/L Potassium (3.5-5.1) mmol/L Chloride (98-107) mmol/L Carbon Dioxide (22-30) mmol/L Anion Gap mmol/L BUN (7-17) mg/dL Creatinine (0.52-1.04) mg/dL Est GFR (CKD-EPI)AfAm (>60 ml/min/1.73 sqM) Est GFR (CKD-EPI)NonAf (>60 ml/min/1.73 sqM) Glucose (74-99) mg/dL Calcium (8.4-10.2) mg/dL Total Bilirubin (0.2-1.3) mg/dL AST (14-36) U/L ALT (9-52) U/L Alkaline Phosphatase (38-126) U/L Troponin I (0.000-0.034) ng/mL Total Protein (6.3-8.2) g/dL Albumin (3.5-5.0) g/dL Influenza Type A RNA Not Detected (Not Detectd) Influenza Type B (PCR) Not Detected (Not Detectd) Disposition Clinical Impression: Acute bronchitis Disposition: HOME SELF-CARE Condition: Good Instructions (If sedation given, give patient instructions): Acute Bronchitis (ED) Additional Instructions: Please use medication as discussed. Please follow-up with family doctor in the next 2 days of symptoms have not improved. Please return to emergency room if the symptoms increase or worsen or for any other concerns. Prescriptions: predniSONE 50 mg PO DAILY #5 tab Azithromycin [Zithromax Z-pack] 0 mg PO DIRECTED #6 tab Is patient prescribed a controlled substance at d/c from ED?: No Referrals: Son Verdugo MD [Primary Care Provider] - 1-2 days Time of Disposition: 16:55
[2018-08-10 16:02] LABS: Basophils # (A) 0.1 k/uL (0-0.2); Basophils % (A) 1 %; Eosinophils # (A) 0.4 k/uL (0-0.7); Eosinophils % (A) 4 %; HCT 42.1 % (34.0-46.0); HGB 13.7 gm/dL (11.4-16.0); Lymphocytes # (A) 2.6 k/uL (1.0-4.8); Lymphocytes % (A) 27 %; MCH 28.5 pg (25.0-35.0); MCHC 32.5 g/dL (31.0-37.0); MCV 87.6 fL (80.0-100.0); Mean Platelet Volume 8.2; Monocytes # (A) 0.4 k/uL (0-1.0); Monocytes % (A) 4 %; Neutrophils # (A) 5.9 k/uL (1.3-7.7); Neutrophils % (A) 62 %; Platelet Count 309 k/uL (150-450); RBC 4.81 m/uL (3.80-5.40); RDW 13.5 % (11.5-15.5); WBC 9.7 k/uL (3.8-10.6)
[2018-08-10 16:04] LABS: ALT 105 U/L (9-52); AST 43 U/L (14-36); Albumin 3.5 g/dL (3.5-5.0); Alkaline Phosphatase 70 U/L (38-126); Anion Gap 6 mmol/L; Blood Urea Nitrogen 9 mg/dL (7-17); Calcium 8.9 mg/dL (8.4-10.2); Carbon Dioxide 25 mmol/L (22-30); Chloride 106 mmol/L (98-107); Glucose 101 mg/dL (74-99); Potassium 3.8 mmol/L (3.5-5.1); Sodium 137 mmol/L (137-145); Total Bilirubin 0.3 mg/dL (0.2-1.3)
--- NOTE | 2018-08-10 16:31 | XR ---
EXAMINATION TYPE: XR chest 2V DATE OF EXAM: 08/10/2018 COMPARISON: 06/28/2018 HISTORY: Chest pain TECHNIQUE: Frontal and lateral views of the chest are obtained. FINDINGS: There is no focal air space opacity. No evidence for pneumothorax. No pleural effusion. The cardiac silhouette size is within normal limits. The osseous structures are grossly intact. IMPRESSION: 1. No acute cardiopulmonary process.
[2018-08-10 17:27] VITALS: BP 123/69; PULSE 61
== END 2018-08-10 17:25 | disposition home or self-care (01) ==
LOC: EC 14:41
DX: J20.9 Acute bronchitis, unspecified (principal); M19.90 Unspecified osteoarthritis, unspecified site; F17.200 Nicotine dependence, unspecified, uncomplicated
CPT/HCPCS: 36415; 71046; 80053; 84484; 85025; 87502; 93005; 96360; 99284

== ENCOUNTER → 2019-01-05 | Outpatient (CLI) | payer BC, OTHER ==
[2019-01-05 14:59] LABS: Basophils # (A) 0.1 k/uL (0-0.2); Basophils % (A) 1 %; Eosinophils # (A) 0.4 k/uL (0-0.7); Eosinophils % (A) 4 %; HCT 44.4 % (34.0-46.0); HGB 15.2 gm/dL (11.4-16.0); Lymphocytes # (A) 2.5 k/uL (1.0-4.8); Lymphocytes % (A) 26 %; MCH 29.9 pg (25.0-35.0); MCHC 34.3 g/dL (31.0-37.0); MCV 87.1 fL (80.0-100.0); Mean Platelet Volume 7.5; Monocytes # (A) 0.6 k/uL (0-1.0); Monocytes % (A) 6 %; Neutrophils % (A) 62 %; Platelet Count 285 k/uL (150-450); RDW 13.1 % (11.5-15.5); WBC 9.7 k/uL (3.8-10.6)
[2019-01-05 15:11] LABS: ALT 18 U/L (9-52); AST 20 U/L (14-36); African American GFR (CKD) >90 (>60 ml/min/1.73 sqM); Albumin 4.1 g/dL (3.5-5.0); Alkaline Phosphatase 78 U/L (38-126); Anion Gap 8 mmol/L; Blood Urea Nitrogen 14 mg/dL (7-17); Calcium 9.6 mg/dL (8.4-10.2); Carbon Dioxide 26 mmol/L (22-30); Chloride 106 mmol/L (98-107); Glucose 95 mg/dL (74-99); Non-African American GFR(CKD) 89 (>60 ml/min/1.73 sqM); Potassium 4.2 mmol/L (3.5-5.1); Sodium 140 mmol/L (137-145); Total Bilirubin 0.4 mg/dL (0.2-1.3)
[2019-01-05 15:13] LABS: INR 0.9 (<1.2); Prothrombin Time 9.6 sec (9.0-12.0)
[2019-01-05 15:19] LABS: Appearance,Urine Cloudy (Clear); Bilirubin,Urine Negative (Negative); Blood,Urine Negative (Negative); Color,Urine Yellow; Glucose,Urine (UA) Negative (Negative); Ketones,Urine Negative (Negative); Leukocyte Esterase,Urine Small (Negative); Mucus,Urine Few /hpf; Nitrite,Urine Negative (Negative); PH, Urine 5.5 (5.0-8.0); Protein,Urine Trace (Negative); RBC,Urine 1 /hpf (0-5); Specific Gravity,Urine 1.023 (1.001-1.035); Squamous Epithelial Cell,Urine 8 /hpf (0-4); Urobilinogen,Urine <2.0 mg/dL (<2.0); WBC,Urine 4 /hpf (0-5)
== END | disposition home or self-care (01) ==
LOC: LABPAT 14:27
PROVIDERS: ATTEND Physician Assistant Surgical
DX: Z01.812 Encounter for preprocedural laboratory examination (principal)
CPT/HCPCS: 80053; 81001; 85025; 85610; 85730; 87086

== ENCOUNTER 2019-05-13 19:57 | Emergency (ER) | payer BC, OTHER ==
[2019-05-13] MEDS ORDERED: MORPHINE SULFATE 4 MG/ML SYRINGE IM STA (20:14)
[2019-05-13] MEDS ORDERED: KETOROLAC 60 MG/2 ML VIAL IM STA (20:14)
--- NOTE | 2019-05-13 21:05 | XR ---
EXAMINATION TYPE: XR knee complete RT DATE OF EXAM: 05/13/2019 COMPARISON: 10/10/2014 HISTORY: Knee pain TECHNIQUE: 3 views FINDINGS: There is right knee prosthesis. Components are in anatomic position. There is no sign of jaky int effusion. IMPRESSION: No fracture seen.
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
[2019-05-13 21:40] VITALS: BP 129/70; PULSE 93; RESP 18; TEMP 98
== END 2019-05-13 21:40 | disposition home or self-care (01) ==
LOC: EC 19:57
DX: S83.421A Sprain of lateral collateral ligament of right knee, initial encounter (principal); M19.90 Unspecified osteoarthritis, unspecified site; F17.200 Nicotine dependence, unspecified, uncomplicated; Z79.1 Long term (current) use of non-steroidal anti-inflammatories (NSAID); Z96.651 Presence of right artificial knee joint; W50.0XXA Accidental hit or strike by another person, initial encounter; Y93.89 Activity, other specified
CPT/HCPCS: 73562; 99284; 96372 ×2; J2270; J1885

== ENCOUNTER 2020-06-18 20:23 | Emergency (ER) | payer OTHER ==
[2020-06-18 20:28] VITALS: BP 122/87; PULSE 105; RESP 19; TEMP 98.1
--- NOTE | 2020-06-18 20:56 | XR ---
EXAMINATION TYPE: XR foot complete LT DATE OF EXAM: 06/18/2020 COMPARISON: NONE HISTORY: Foot pain TECHNIQUE: 3 views FINDINGS: Metatarsals are intact. I see no fracture nor dislocation. The big toe is intact IMPRESSION: Negative left foot exam.
--- NOTE | 2020-06-18 21:02 | ED ---
Lower Extremity Injury HPI - General Chief Complaint: Extremity Injury, Lower Stated Complaint: Fall, Big toe pain Time Seen by Provider: 06/18/20 20:35 Source: patient Mode of arrival: ambulatory Limitations: no limitations - History of Present Illness Initial Comments: Patient is a 40-year-old female presenting to the emergency Department with complaints of left great toe pain after she slipped on some stairs today. Patient states she did not realize the stairs were wet and her foot slipped and she fell approximately 3 stairs. Her only complaint is her left great toe pain. She believes she may have subluxed or there is a fracture. She denies any previous surgeries of her left foot or left lower leg. She denies any other injuries from her fall, she did not hit her head. She is no further complaints at this time. - Related Data Home Medications Medication Instructions Recorded Confirmed Ibuprofen [Motrin] 800 mg PO Q8H PRN 08/10/18 08/10/18 Previous Rx's Medication Instructions Recorded Azithromycin [Zithromax Z-pack (6 0 mg PO DIRECTED #6 tab 08/10/18 tabs)] Benzonatate [Tessalon Perles] 100 mg PO TID PRN #20 capsule 08/10/18 predniSONE 50 mg PO DAILY #5 tab 08/10/18 Allergies Allergy/AdvReac Type Severity Reaction Status Date / Time No Known Allergies Allergy Verified 06/18/20 20:28 Review of Systems ROS Statement: Those systems with pertinent positive or pertinent negative responses have been documented in the HPI. ROS Other: All systems not noted in ROS Statement are negative. Past Medical History Past Medical History: Osteoarthritis (OA) Additional Past Medical History / Comment(s): CURRENT TORN RT ACL History of Any Multi-Drug Resistant Organisms: None Reported Past Surgical History: Section, Cholecystectomy, Joint Replacement, Orthopedic Surgery, Tubal Ligation Additional Past Surgical History / Comment(s): right knee Past Anesthesia/Blood Transfusion Reactions: No Reported Reaction Past Psychological History: Depression Smoking Status: Current every day smoker Past Alcohol Use History: Rare Past Drug Use History: None Reported - Past Family History Mother Family Medical History: No Reported History General Exam - General Exam Comments Initial Comments: GENERAL: Patient is well-developed and well-nourished. Patient is nontoxic and in no acute distress. HEAD: Atraumatic, normocephalic. There are no hematomas. EYES: Pupils equal round and reactive to light, extraocular movements intact, sclera anicteric, conjunctiva are normal. Eyelids were unremarkable. ENT: TMs normal, nares patent, oropharynx clear without exudates. Moist mucous membranes. NECK: Normal range of motion, supple without lymphadenopathy or JVD. LUNGS: Unlabored respirations. Breath sounds clear to auscultation bilaterally and equal. No wheezes rales or rhonchi. HEART: Regular rate and rhythm without murmurs, rubs or gallops. ABDOMEN: Soft, nontender, normoactive bowel sounds. No guarding, no rebound. No masses appreciated. : Deferred MUSCULOSKELETAL: Patient has pain to palpation of the base of the left great toe, there is some very mild swelling to this area, no obvious deformity, no pain of the rest of the left foot or left ankle. She does have full ankle range of motion. She is neurovascular intact left lower extremity. No clubbing or cyanosis. NEUROLOGICAL: Patient is alert and oriented x 3. Motor and sensory are also intact. Cranial nerves II through XII grossly intact. Symmetrical smile. Normal speech. PSYCH: Normal mood, normal affect. SKIN: Warm, Dry, normal turgor, no rashes or lesions noted. Limitations: no limitations Course Vital Signs 06/18/20 20:25 Temperature 98.1 F Pulse Rate 105 H Respiratory 19 Rate Blood Pressure 122/87 O2 Sat by Pulse 98 Oximetry Medical Decision Making - Medical Decision Making Patient is a 40-year-old female here for left great toe pain after she slipped on a few stairs. She denies any other complaints from this fall. There is no obvious deformity, there is some very mild swelling over the base of the left great toe. X-rays reveal no acute fractures dislocations. I discussed the patient is most likely contusion. Recommend icing, ibuprofen or Tylenol for any discomfort. She can follow-up with her regular doctor symptoms persist for reexamination. Patient is in agreement with this plan of care. Case discussed with Dr. matute. Disposition Clinical Impression: Sprain of left great toe, Contusion of left great toe without damage to nail Disposition: HOME SELF-CARE Condition: Stable Instructions (If sedation given, give patient instructions): Foot Sprain (ED) Additional Instructions: Please return to the Emergency Department if symptoms worsen or any other concerns. Recommend ice to the area, Tylenol or ibuprofen for any discomfort. If symptoms persist without improvement after 1-2 weeks, follow up with your regular doctor for reexamination. Is patient prescribed a controlled substance at d/c from ED?: No Referrals: Son Verdugo MD [Primary Care Provider] - 1-2 days
== END 2020-06-18 21:08 | disposition home or self-care (01) ==
LOC: EC 20:23
DX: S93.502A Unspecified sprain of left great toe, initial encounter (principal); F17.200 Nicotine dependence, unspecified, uncomplicated; W10.9XXA Fall (on) (from) unspecified stairs and steps, initial encounter
CPT/HCPCS: 99283

== ENCOUNTER 2021-01-11 16:14 | Emergency (ER) | payer OTHER ==
[2021-01-11 16:28] VITALS: BP 116/70
[2021-01-11] MEDS ORDERED: ACETAMINOPHEN TAB 500 MG TAB PO STA (16:56)
[2021-01-11 18:05] LABS: Appearance,Urine Clear (Clear); Bilirubin,Urine Negative (Negative); Blood,Urine Negative (Negative); Color,Urine Yellow; Glucose,Urine (UA) Negative (Negative); Ketones,Urine Negative (Negative); Leukocyte Esterase,Urine Small (Negative); Nitrite,Urine Negative (Negative); Protein,Urine Negative (Negative); RBC,Urine 1 /hpf (0-5); Squamous Epithelial Cell,Urine 1 /hpf (0-4); Urobilinogen,Urine <2.0 mg/dL (<2.0); WBC,Urine 10 /hpf (0-5)
--- NOTE | 2021-01-11 18:16 | XR ---
EXAMINATION TYPE: XR chest 2V DATE OF EXAM: 01/11/2021 COMPARISON: 08/10/2018 HISTORY: Cough TECHNIQUE: FINDINGS: Heart and mediastinum are normal. Lungs are clear. Diaphragm is normal. Bony thorax appears normal. IMPRESSION: Normal chest. No change.
--- NOTE | 2021-01-11 18:53 | ED ---
General Adult HPI - General Chief complaint: Fever Stated complaint: fever, weakness Time Seen by Provider: 01/11/21 16:37 Source: patient Mode of arrival: ambulatory Limitations: no limitations - History of Present Illness Initial comments: 40-year-old female presents to the emergency room for a chief complaint of low- grade fevers. Patient has had low-grade fevers for 2 days now. She has felt very fatigued and has been sleeping more. She denies any abdominal pain, nausea, vomiting, diarrhea. Denies cough congestion sore throat. Patient denies any other complaints.Patient has no other complaints at this time including shortness of breath, chest pain, abdominal pain, nausea or vomiting, headache, or visual changes. - Related Data Home Medications Medication Instructions Recorded Confirmed Ibuprofen [Motrin] 800 mg PO Q8H PRN 08/10/18 01/11/21 Esomeprazole Magnesium [NexIUM 20 mg PO BID PRN 01/11/21 01/11/21 24Hr] Allergies Allergy/AdvReac Type Severity Reaction Status Date / Time No Known Allergies Allergy Verified 01/11/21 16:52 Review of Systems ROS Statement: Those systems with pertinent positive or pertinent negative responses have been documented in the HPI. ROS Other: All systems not noted in ROS Statement are negative. Past Medical History Past Medical History: Osteoarthritis (OA) Additional Past Medical History / Comment(s): CURRENT TORN RT ACL History of Any Multi-Drug Resistant Organisms: None Reported Past Surgical History: Section, Cholecystectomy, Joint Replacement, Orthopedic Surgery, Tubal Ligation Additional Past Surgical History / Comment(s): right knee Past Anesthesia/Blood Transfusion Reactions: No Reported Reaction Past Psychological History: Depression Smoking Status: Current every day smoker Past Alcohol Use History: Rare Past Drug Use History: None Reported - Past Family History Mother Family Medical History: No Reported History General Exam Limitations: no limitations General appearance: alert, in no apparent distress Head exam: Present: atraumatic Eye exam: Present: normal appearance, PERRL, EOMI. Absent: scleral icterus, conjunctival injection ENT exam: Present: normal exam, mucous membranes moist Neck exam: Present: normal inspection, full ROM. Absent: tenderness Respiratory exam: Present: normal lung sounds bilaterally. Absent: respiratory distress, wheezes Cardiovascular Exam: Present: regular rate, normal rhythm, normal heart sounds GI/Abdominal exam: Present: soft, normal bowel sounds. Absent: distended, tenderness Neurological exam: Present: alert Course Vital Signs 01/11/21 16:25 Temperature 99 F Pulse Rate 114 H Respiratory 20 Rate Blood Pressure 116/70 O2 Sat by Pulse 100 Oximetry Medical Decision Making - Medical Decision Making Vitals are stable. Patient initially tachycardic however this did improve throughout her stay. 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 Denies any other symptoms of fevers that from fatigue. Urinalysis was obtained which was unremarkable. No bacteria noted. Negative nitrites. Coronavirus is negative. Chest x-ray shows a normal chest. At this time patient can follow-up with primary care in stable condition. However if she has worsening symptoms return to the er. - Lab Data Lab Results 01/11/21 01/11/21 01/11/21 Range/Units 17:50 17:50 17:50 Urine Color Yellow Urine Appearance Clear (Clear) Urine pH 7.0 (5.0-8.0) Ur Specific [place] 1.010 (1.001-1.035) Urine Protein Negative (Negative) Urine Glucose (UA) Negative (Negative) Urine Ketones Negative (Negative) Urine Blood Negative (Negative) Urine Nitrite Negative (Negative) Urine Bilirubin Negative (Negative) Urine Urobilinogen <2.0 (<2.0) mg/dL Ur Leukocyte Esterase Small H (Negative) Urine RBC 1 (0-5) /hpf Urine WBC 10 H (0-5) /hpf Ur Squamous Epith Cells 1 (0-4) /hpf Urine HCG, Qual Not Detected (Not Detectd) Coronavirus (PCR) Not Detected (Not Detectd) Disposition Clinical Impression: Low grade fever, Malaise Disposition: HOME SELF-CARE Condition: Good Instructions (If sedation given, give patient instructions): Fever in Adults (ED) Additional Instructions: Please follow-up with your doctor in one to 2 days. Return to the emergency room for any worsening symptoms. Is patient prescribed a controlled substance at d/c from ED?: No Referrals: Colten Lay MD [Primary Care Provider] - 1-2 days Time of Disposition: 18:52
[2021-01-11 19:00] VITALS: PULSE 94; RESP 18; TEMP 98.8
== END 2021-01-11 19:33 | disposition home or self-care (01) ==
LOC: EC 16:14
DX: R50.9 Fever, unspecified (principal); R53.81 Other malaise; R53.83 Other fatigue; F17.200 Nicotine dependence, unspecified, uncomplicated; M19.90 Unspecified osteoarthritis, unspecified site; Z20.822 Contact with and (suspected) exposure to COVID-19
CPT/HCPCS: 71046; 81001; 81025; 87635; 99283

== ENCOUNTER 2022-01-16 06:36 | Emergency (ER) | payer OTHER ==
[2022-01-16 06:52] VITALS: RESP 16
--- NOTE | 2022-01-16 07:30 | XR ---
EXAMINATION TYPE: XR lumbosacral spine min 4V DATE OF EXAM: 01/16/2022 CLINICAL HISTORY: Fall injury with pain TECHNIQUE: Frontal, lateral, and oblique images of the lumbar spine are obtained. COMPARISON: None FINDINGS: There are 5 lumbar type vertebral bodies identified. The lumbar spine shows satisfactory alignment without evidence of acute fracture or dislocation. Vertebral body heights and disk space he ights are within normal limits. The oblique images appear within normal limits. Overlying cholecyst ectomy clips are present. IMPRESSION: No acute fracture or dislocation is seen in the lumbar spine.
--- NOTE | 2022-01-16 07:31 | ED ---
General Adult HPI - General Chief complaint: Back Pain/Injury Stated complaint: Fall Time Seen by Provider: 01/16/22 06:44 Source: patient, RN notes reviewed Mode of arrival: ambulatory Limitations: no limitations - History of Present Illness Initial comments: 41-year-old female presents emergency Department with chief complaint of back pain. Patient states she was cleaning her to be states that she didn't realize it was white down with the bleach states it was slippery falling backwards onto her back hitting the edge of her bed frame. Patient denies any bowel bladder incontinence or retention of saddle anesthesias no lotion or paresthesias no pain rates down into her lower extremities. She states she has increased pain with movement she has no difficulty ambulating. Patient states that she had no history of back surgery no prior record problems. No head injury no loss conscious. She states this injury happened yesterday. - Related Data Home Medications Medication Instructions Recorded Confirmed Ibuprofen [Motrin] 800 mg PO Q8H PRN 08/10/18 01/11/21 Esomeprazole Magnesium [NexIUM 20 mg PO BID PRN 01/11/21 01/11/21 24Hr] Previous Rx's Medication Instructions Recorded Cyclobenzaprine [Flexeril] 10 mg PO TID PRN #15 tab 01/16/22 Ibuprofen [Motrin] 600 mg PO Q8HR PRN #30 tab 01/16/22 Allergies Allergy/AdvReac Type Severity Reaction Status Date / Time No Known Allergies Allergy Verified 01/16/22 06:49 Review of Systems ROS Statement: Those systems with pertinent positive or pertinent negative responses have been documented in the HPI. ROS Other: All systems not noted in ROS Statement are negative. Past Medical History Past Medical History: Osteoarthritis (OA) Additional Past Medical History / Comment(s): CURRENT TORN RT ACL History of Any Multi-Drug Resistant Organisms: None Reported Past Surgical History: Section, Cholecystectomy, Joint Replacement, Orthopedic Surgery, Tubal Ligation Additional Past Surgical History / Comment(s): right knee Past Anesthesia/Blood Transfusion Reactions: No Reported Reaction Past Psychological History: Depression Smoking Status: Current every day smoker Past Alcohol Use History: Rare Past Drug Use History: None Reported - Past Family History Mother Family Medical History: No Reported History General Exam Limitations: no limitations General appearance: alert, in no apparent distress Head exam: Present: atraumatic, normocephalic, normal inspection Eye exam: Present: normal appearance, PERRL, EOMI. Absent: scleral icterus, conjunctival injection, periorbital swelling ENT exam: Present: normal exam, normal oropharynx, mucous membranes moist Neck exam: Present: normal inspection, full ROM. Absent: tenderness, meningismus, lymphadenopathy Respiratory exam: Present: normal lung sounds bilaterally. Absent: respiratory distress, wheezes, rales, rhonchi, stridor Cardiovascular Exam: Present: regular rate, normal rhythm, normal heart sounds. Absent: systolic murmur, diastolic murmur, rubs, gallop, clicks GI/Abdominal exam: Present: soft, normal bowel sounds. Absent: distended, tenderness, guarding, rebound, rigid Extremities exam: Present: normal inspection, full ROM, normal capillary refill. Absent: tenderness, pedal edema, joint swelling, calf tenderness Back exam: Present: full ROM, tenderness, paraspinal tenderness, vertebral tenderness (Lumbar) Neurological exam: Present: alert, oriented X3, reflexes normal. Absent: motor sensory deficit Course Vital Signs 01/16/22 06:49 Temperature 97.4 F L Pulse Rate 96 Respiratory 16 Rate Blood Pressure 123/68 O2 Sat by Pulse 100 Oximetry Medical Decision Making - Medical Decision Making 41-year-old female presented for low back pain after a fall x-rays are negative for acute fracture. Patient has no red flag symptoms will be discharged in stable condition return parameters were discussed patient agrees to plan. Disposition Clinical Impression: Lumbar back pain Disposition: HOME SELF-CARE Condition: Stable Instructions (If sedation given, give patient instructions): Acute Low Back Pain (ED) Additional Instructions: Please return to the Emergency Department if symptoms worsen or any other concerns. Prescriptions: Cyclobenzaprine [Flexeril] 10 mg PO TID PRN #15 tab PRN Reason: Muscle Spasm Ibuprofen [Motrin] 600 mg PO Q8HR PRN #30 tab PRN Reason: Pain Is patient prescribed a controlled substance at d/c from ED?: No Referrals: Colten Lay MD [Primary Care Provider] - 1-2 days Time of Disposition: 07:43
[2022-01-16] MEDS ORDERED: ACET/COD 300 MG/30 MG STARTER PACK 6 TAB BTL PO STA (07:44)
[2022-01-16 07:57] VITALS: BP 118/46; PULSE 72; TEMP 98.8
== END 2022-01-16 07:58 | disposition home or self-care (01) ==
LOC: EC 06:36
DX: M54.50 Low back pain, unspecified (principal); M19.90 Unspecified osteoarthritis, unspecified site; F17.200 Nicotine dependence, unspecified, uncomplicated; W01.190A Fall on same level from slipping, tripping and stumbling with subsequent striking against furniture, initial encounter
CPT/HCPCS: 72110; 99283